=== PATIENT | male | born 1960 | race Caucasian/White ===

== ENCOUNTER → 2016-11-04 | Outpatient (CLI) | payer OTHER ==
--- NOTE | 2016-11-04 15:57 | CT ---
EXAMINATION TYPE: CT cervical spine wo con DATE OF EXAM: 11/04/2016 COMPARISON: NONE HISTORY: Patient complains of neck stiffness and abnormal cspine xrays at doctors office. CT DLP: 928.[address] of the cervical spine was performed with bone and soft tissue window settings submitted . Coronal and sagittal reconstruction is obtained. C2-3: Within normal limits. C3-4: Within normal limits. C4-5: Moderate degenerative disc space narrowing. Posterior disc bulge with mild effacement ventral t hecal sac. No singh disc herniation or central stenosis. Bilateral foraminal encroachment left greate r than right. C5-6: Moderate to severe degenerative disc space narrowing. Moderate posterior disc bulge with partia l encapsulating spur resulting in disc endplate complex. Effacement ventral thecal sac with borderlin e stenosis. Bilateral foraminal encroachment left greater than right. C6-7: Moderate to severe degenerative disc space narrowing. Moderate posterior disc bulge with partia l encapsulating spur resulting in disc endplate complex. Effacement ventral thecal sac with borderlin e stenosis. Bilateral foraminal encroachment left greater than right. C7-T1: Within normal limits. There is no evidence for fracture or subluxation. Alignment is within normal limits. IMPRESSION: 1. Multilevel degenerative disc disease with disc endplate complex and borderline stenosis at C5-6 an d C6-7. Foraminal encroachment as noted.
== END ==
LOC: RADCTMAIN 15:24
PROVIDERS: ATTEND Family Medicine
DX: M48.02 Spinal stenosis, cervical region (principal); M50.30 Other cervical disc degeneration, unspecified cervical region
CPT/HCPCS: 72125

== ENCOUNTER 2018-08-14 19:39 | Inpatient (IN) | payer OTHER ==
[2018-08-14 20:39] LABS: Basophils # (A) 0.1 k/uL (0-0.2); Basophils % (A) 1 %; Eosinophils # (A) 0.1 k/uL (0-0.7); Eosinophils % (A) 2 %; HCT 49.2 % (39.0-53.0); HGB 16.7 gm/dL (13.0-17.5); Lymphocytes # (A) 2.1 k/uL (1.0-4.8); Lymphocytes % (A) 30 %; MCV 97.1 fL (80.0-100.0); Mean Platelet Volume 7.2; Monocytes # (A) 0.5 k/uL (0-1.0); Monocytes % (A) 6 %; Neutrophils # (A) 4.3 k/uL (1.3-7.7); Neutrophils % (A) 60 %; Platelet Count 220 k/uL (150-450); RBC 5.07 m/uL (4.30-5.90); RDW 13.9 % (11.5-15.5); WBC 7.2 k/uL (3.8-10.6)
[2018-08-14 20:46] LABS: ALT 89 U/L (21-72); AST 62 U/L (17-59); Albumin 4.1 g/dL (3.5-5.0); Alkaline Phosphatase 121 U/L (38-126); Amylase 53 U/L (30-110); Anion Gap 17 mmol/L; Blood Urea Nitrogen 13 mg/dL (9-20); Calcium 9.3 mg/dL (8.4-10.2); Carbon Dioxide 18 mmol/L (22-30); Chloride 98 mmol/L (98-107); Creatine Kinase 100 U/L (55-170); Glucose 371 mg/dL (74-99); Lipase 245 U/L (23-300); Magnesium 1.8 mg/dL (1.6-2.3); Potassium 4.2 mmol/L (3.5-5.1); Sodium 133 mmol/L (137-145); Total Bilirubin 0.5 mg/dL (0.2-1.3)
--- NOTE | 2018-08-14 20:49 | XR ---
EXAMINATION TYPE: XR chest 2V DATE OF EXAM: 08/14/2018 COMPARISON: NONE HISTORY: Chest pain TECHNIQUE: Frontal and lateral views of the chest are obtained. FINDINGS: Heart and mediastinum are normal. Lungs are clear. Diaphragm is normal. Bony thorax is int act. There are sternal wires. IMPRESSION: Normal chest.
--- NOTE | 2018-08-14 20:51 | ED ---
Chest Pain HPI - General Chief Complaint: Chest Pain Stated Complaint: Chest Pain Time Seen by Provider: 08/14/18 19:39 Source: patient, EMS, RN notes reviewed Mode of arrival: EMS Limitations: no limitations - History of Present Illness Initial Comments: This is a 57-year-old male with a history of coronary artery bypass x3 about 15 years ago who is brought in by EMS site to shortness of breath which later was accompanied by chest pain. He does have some chronic neck pain it was worse tonight. He was given aspirin nitroglycerin the chest pain to go away. He does state he's been having intermittent fairly consistent now episodes of chest pain every morning lasting about 20 minutes ago with nitroglycerin. He has also been having sweats with it and shortness of breath with it. Right now he has no pain or shortness of breath at this time he does have chronic neck pain that is still there. He denies any trauma fevers chills sweats or other symptoms at this time MD Complaint: chest pain, other - Related Data Home Medications Medication Instructions Recorded Confirmed Atenolol 12.5 mg PO DAILY 09/04/15 08/14/18 Cyclobenzaprine [Flexeril] 10 mg PO DAILY 08/14/18 08/14/18 Omeprazole 40 mg PO DAILY 08/14/18 08/14/18 Vilazodone HCl [Viibryd] 10 mg PO DAILY 08/14/18 08/14/18 Previous Rx's Medication Instructions Recorded Atorvastatin Calcium [Lipitor] 80 mg PO DAILY #1 tab 09/07/15 Allergies Allergy/AdvReac Type Severity Reaction Status Date / Time No Known Allergies Allergy Verified 08/14/18 20:10 Review of Systems ROS Statement: Those systems with pertinent positive or pertinent negative responses have been documented in the HPI. ROS Other: All systems not noted in ROS Statement are negative. EKG Findings - EKG Results: EKG: interpreted by ERMD (EKG shows sinus rhythm a 94. Interval 170 QRS duration 154 QT since QTC 410/412 evidence a left exodeviation left bundle- branch block pattern. This is consistent with that submitted by EMS this is however change from the EKG dated 08/7615.) Past Medical History Past Medical History: CVA/TIA, GERD/Reflux, Hyperlipidemia, Memory Impairment, Myocardial Infarction (NM), Osteoarthritis (OA) Additional Past Medical History / Comment(s): HX OF TIA -SHORT TERM MEMORY PROBLEMS ,HX OF GOUT, RECTAL FISTULA WITH OCCASIONAL BLEEDING. Last Myocardial Infarction Date:: 2010 History of Any Multi-Drug Resistant Organisms: MRSA Date of last positivie culture/infection: 2010 MDRO Source:: chest incision Past Surgical History: Cholecystectomy, Coronary Bypass/CABG, Heart Catheterization Additional Past Surgical History / Comment(s): triple bypass 2011, RECTAL FISTULA SURGERY X6. Past Anesthesia/Blood Transfusion Reactions: No Reported Reaction Past Psychological History: Depression Smoking Status: Current every day smoker Past Alcohol Use History: Occasional Past Drug Use History: None Reported - Past Family History Brother(s) Family Medical History: Deep Vein Thrombosis (DVT) Mother Family Medical History: Cancer Additional Family Medical History / Comment(s): COLON CANCER General Exam - General Exam Comments Initial Comments: This a well-developed well-nourished awake alert oriented 3 male Limitations: no limitations General appearance: alert, in no apparent distress Head exam: Present: atraumatic, normocephalic, normal inspection Eye exam: Present: normal appearance, PERRL, EOMI. Absent: scleral icterus, conjunctival injection, periorbital swelling ENT exam: Present: normal exam, mucous membranes moist Neck exam: Present: normal inspection. Absent: tenderness, meningismus, lymphadenopathy Respiratory exam: Present: normal lung sounds bilaterally. Absent: respiratory distress, wheezes, rales, rhonchi, stridor Cardiovascular Exam: Present: regular rate, normal rhythm, normal heart sounds. Absent: systolic murmur, diastolic murmur, rubs, gallop, clicks GI/Abdominal exam: Present: soft, normal bowel sounds. Absent: distended, tenderness, guarding, rebound, rigid Extremities exam: Present: normal inspection, full ROM, normal capillary refill. Absent: tenderness, pedal edema, joint swelling, calf tenderness Back exam: Present: normal inspection Neurological exam: Present: alert, oriented X3, CN II-XII intact Psychiatric exam: Present: normal affect, normal mood Skin exam: Present: warm, dry, intact, normal color. Absent: rash Course Vital Signs 08/14/18 08/14/18 08/14/18 19:42 21:22 22:55 Temperature 98.1 F Pulse Rate 97 79 Respiratory 20 16 Rate Blood Pressure 109/93 109/73 93/68 O2 Sat by Pulse 95 96 Oximetry - Reevaluation(s) Reevaluation #1: 08/14/18 23:06 Patient no further chest pain while in the emergency department. Chest Pain MDM - MDM Patient's presentation consistent with angina is been having recurrent pain and other symptoms associated with it. Discussed case with Dr. gipson patient be admitted with cardiology consultation. Critical Care Time Critical Care Time: Yes Critical Care Time: 31 minutes of critical care time which was initial presentation with history physical labs x-rays several reassessments of the patient discussed with the paramedics brought the patient. Discussed with Dr. gipson and admission orders and documentation the above as well as review of old charting. Disposition Clinical Impression: Chest pain, Unstable angina pectoris, Acute coronary syndrome Disposition: ADMITTED IP TO THIS HOSP Condition: Fair Referrals: Juan Rice MD [Primary Care Provider] - 1-2 days
[2018-08-14 21:04] LABS: INR 0.9 (<1.2); Partial Thromboplastin Time 22.2 sec (22.0-30.0); Prothrombin Time 9.9 sec (9.0-12.0)
[2018-08-14 21:28] LABS: D-Dimer 0.68 mg/L FEU (<0.60)
[2018-08-14] MEDS ORDERED: HEPARIN SODIUM,PORCINE 5,000 UNIT/ML 1 ML VIAL IV ONE (23:10)
[2018-08-14] MEDS ORDERED: NITROGLYCERIN SL TABS 0.4 MG TAB SUBLINGUAL PRN (23:10)
--- NOTE | 2018-08-14 23:14 | ED ---
Medical Decision Making - Lab Data Result diagrams: 08/14/18 20:19 08/14/18 20:19 Lab Results 08/14/18 08/14/18 08/14/18 Range/Units 20:19 20:19 20:19 WBC 7.2 (3.8-10.6) k/uL RBC 5.07 (4.30-5.90) m/uL Hgb 16.7 (13.0-17.5) gm/dL Hct 49.2 (39.0-53.0) % MCV 97.1 (80.0-100.0) fL MCH 33.0 (25.0-35.0) pg MCHC 34.0 (31.0-37.0) g/dL RDW 13.9 (11.5-15.5) % Plt Count 220 (150-450) k/uL Neutrophils % 60 % Lymphocytes % 30 % Monocytes % 6 % Eosinophils % 2 % Basophils % 1 % Neutrophils # 4.3 (1.3-7.7) k/uL Lymphocytes # 2.1 (1.0-4.8) k/uL Monocytes # 0.5 (0-1.0) k/uL Eosinophils # 0.1 (0-0.7) k/uL Basophils # 0.1 (0-0.2) k/uL PT 9.9 (9.0-12.0) sec INR 0.9 (<1.2) APTT 22.2 (22.0-30.0) sec D-Dimer 0.68 H (<0.60) mg/L FEU Sodium 133 L (137-145) mmol/L Potassium 4.2 (3.5-5.1) mmol/L Chloride 98 (98-107) mmol/L Carbon Dioxide 18 L (22-30) mmol/L Anion Gap 17 mmol/L BUN 13 (9-20) mg/dL Creatinine 0.97 (0.66-1.25) mg/dL Est GFR (CKD-EPI)AfAm >90 (>60 ml/min/1.73 sqM) Est GFR (CKD-EPI)NonAf 87 (>60 ml/min/1.73 sqM) Glucose 371 H (74-99) mg/dL Calcium 9.3 (8.4-10.2) mg/dL Magnesium 1.8 (1.6-2.3) mg/dL Total Bilirubin 0.5 (0.2-1.3) mg/dL AST 62 H (17-59) U/L ALT 89 H (21-72) U/L Alkaline Phosphatase 121 (38-126) U/L Creatine Kinase 100 (55-170) U/L Troponin I (0.000-0.034) ng/mL NT-Pro-B Natriuret Pep pg/mL Total Protein 7.0 (6.3-8.2) g/dL Albumin 4.1 (3.5-5.0) g/dL Amylase 53 (30-110) U/L Lipase 245 (23-300) U/L 08/14/18 08/14/18 Range/Units 20:19 20:19 WBC (3.8-10.6) k/uL RBC (4.30-5.90) m/uL Hgb (13.0-17.5) gm/dL Hct (39.0-53.0) % MCV (80.0-100.0) fL MCH (25.0-35.0) pg MCHC (31.0-37.0) g/dL RDW (11.5-15.5) % Plt Count (150-450) k/uL Neutrophils % % Lymphocytes % % Monocytes % % Eosinophils % % Basophils % % Neutrophils # (1.3-7.7) k/uL Lymphocytes # (1.0-4.8) k/uL Monocytes # (0-1.0) k/uL Eosinophils # (0-0.7) k/uL Basophils # (0-0.2) k/uL PT (9.0-12.0) sec INR (<1.2) APTT (22.0-30.0) sec D-Dimer (<0.60) mg/L FEU Sodium (137-145) mmol/L Potassium (3.5-5.1) mmol/L Chloride (98-107) mmol/L Carbon Dioxide (22-30) mmol/L Anion Gap mmol/L BUN (9-20) mg/dL Creatinine (0.66-1.25) mg/dL Est GFR (CKD-EPI)AfAm (>60 ml/min/1.73 sqM) Est GFR (CKD-EPI)NonAf (>60 ml/min/1.73 sqM) Glucose (74-99) mg/dL Calcium (8.4-10.2) mg/dL Magnesium (1.6-2.3) mg/dL Total Bilirubin (0.2-1.3) mg/dL AST (17-59) U/L ALT (21-72) U/L Alkaline Phosphatase (38-126) U/L Creatine Kinase (55-170) U/L Troponin I 0.029 (0.000-0.034) ng/mL NT-Pro-B Natriuret Pep 353 pg/mL Total Protein (6.3-8.2) g/dL Albumin (3.5-5.0) g/dL Amylase (30-110) U/L Lipase (23-300) U/L Disposition Clinical Impression: Chest pain, Unstable angina pectoris, Acute coronary syndrome, Hyperglycemia Disposition: ADMITTED IP TO THIS HOSP Condition: Fair Referrals: Juan Rice MD [Primary Care Provider] - 1-2 days
[2018-08-14] MEDS: SODIUM CHLORIDE 0.9% 1,000 ML IV SCH (23:33)
[2018-08-14] MEDS: HEPARIN SOD,PORK IN 0.45% NACL 25,000 UNIT in 0.45% NACL 1 250ML.BAG IV SCH (23:36)
[2018-08-15 00:49] LABS: Glucose,Whole Blood 206 mg/dL (75-99)
[2018-08-15] MEDS ORDERED: INSULIN ASPART (NovoLOG) 100 UNIT/ML VIAL SQ ONE (00:53)
[2018-08-15] MEDS: NITROGLYCERIN OINT 1 INCH/GM PACKET TOPICAL SCH ×4 (01:05→17:07)
[2018-08-15 06:41] LABS: Glucose,Whole Blood 181 mg/dL (75-99)
[2018-08-15 06:53] LABS: Cholesterol 244 mg/dL (<200); HDL Cholesterol 26 mg/dL (40-60); Triglycerides 411 mg/dL (<150)
[2018-08-15] MEDS ORDERED: ALPRAZolam 0.5 MG TAB PO PRN (07:36)
[2018-08-15] MEDS ORDERED: NITROGLYCERIN SL TABS 0.4 MG TAB SUBLINGUAL PRN (07:36)
[2018-08-15] MEDS ORDERED: ALPRAZolam 0.25 MG TAB PO PRN (07:36)
--- NOTE | 2018-08-15 07:55 | CONS ---
CONSULTATION Mr. Stephens is a 57-year-old male with a known history of heart disease about 15 years ago who presented to the hospital with symptoms of chest discomfort. He follows on a regular basis with Dr. Villalobos, has a history of chronic tobacco use, noncompliance with his medication. He has been complaining of chest discomfort according to him every morning that is relieved with nitroglycerin, but yesterday the discomfort was most severe. He has dyspnea on exertion of moderate degree. He has no dizziness. No palpitation. No syncope. No PND, orthopnea, or peripheral edema. His coronary risk factors are remarkable for hyperlipidemia, chronic tobacco use and smoking. MEDICATIONS: His medication he is supposed to be on: Viibryd, omeprazole, Flexeril, Lipitor 80 mg daily, atenolol 12.5 mg daily, although the compliance with his medication is on clear. REVIEW OF SYSTEMS: RESPIRATORY system: He has chronic dyspnea on exertion and chronic tobacco use. GI system: He has prior history of fistula with occasional GI bleeding. system: No dysuria or hematuria. NERVOUS SYSTEM: No stroke or seizure. SOCIAL HISTORY: He smokes on a daily basis. He has occasional alcohol intake. PHYSICAL EXAMINATION: He is a 57-year-old male, alert, oriented, no apparent distress. Blood pressure 110/70 with a heart rate in the 70s. HEAD: Normocephalic. EYES: Sclerae anicteric. NECK: Good upstroke. No bruit. No jugular venous distention. LUNGS: Clear to auscultation. HEART: Regular rate and rhythm. S1, S2. No S3 with a systolic murmur heard at the base. No diastolic murmur. No rub. ABDOMEN: Soft, obese, nontender. EXTREMITIES: No edema. Intact distal pulses. The patient has underwent echocardiogram during his most recent admission in 2016. At that time had ejection fraction of 35-40 percent. He underwent cardiac catheterization at that time by Dr. Villalobos and was found to have a 50% ostial left main chronically occluded LAD, subtotally occluded obtuse marginal branch and diffuse disease in the mid right coronary artery. The saphenous vein graft to the left circumflex was occluded and he was treated medically. LAB DATA: From this admission revealed a troponin 0.029 and 0.042, cholesterol 244, triglycerides of 411. His AST 62, ALT is 89, blood sugar of 371, BUN and creatinine 13 and 0.97, hemoglobin of 16.7. His chest x-ray revealed no acute infiltrate. His EKG revealed sinus mechanism with a left bundle branch block and left axis deviation. IMPRESSION: 1. Non ST-segment elevation myocardial infarction in a patient with known history of coronary artery disease. 2. History of ischemic cardiomyopathy. 3. Noncompliance. 4. Probable diabetes mellitus with elevated blood sugar. 5. Chronic tobacco use. 6. Hypertension. RECOMMENDATION: From the cardiac standpoint, I will obtain echocardiogram with Doppler. We will continue on the heparin. I would recommend to proceed with coronary angiography to assess his status and guide his treatment. The rationale behind the procedures, risks and complication were discussed with the patient who is in full understanding and agreement. Thank you for this consult. We will follow with you. MMODL / IJN: [id number] /
[2018-08-15] MEDS ORDERED: ATORVASTATIN 80 MG TAB PO SCH (09:00)
[2018-08-15] MEDS ORDERED: ASPIRIN 325 MG TAB PO SCH ×2 (09:00→09:05)
[2018-08-15] MEDS: LISINOPRIL 5 MG TAB PO SCH (09:23)
[2018-08-15] MEDS: CYCLOBENZAPRINE 10 MG TAB PO SCH (09:23)
[2018-08-15] MEDS: INSULIN ASPART (NovoLOG) 100 UNIT/ML VIAL SQ SCH ×4 (09:23→21:04)
[2018-08-15] MEDS: ATENOLOL 25 MG TAB PO SCH (09:23)
[2018-08-15] MEDS: PANTOPRAZOLE 40 MG TABLET PO SCH (09:23)
[2018-08-15] MEDS: ATORVASTATIN 80 MG TAB PO SCH (09:29)
[2018-08-15] MEDS: Vilazodone Hcl [Viibryd] 10 MG PO SCH (09:34)
--- NOTE | 2018-08-15 10:33 | P.HPIM ---
History of Present Illness Chief Complaint: Chest pain This is a 57-year-old gentleman aspirin analysis significant for hypertension, hyperlipidemia, CAD comes in with above-mentioned complaints. Patient says that for the past few days she's been having chest pain daily in the morning which would be relieved by nitro. He said that yesterday he started having chest pains in the morning that didn't get better with nitro. He didn't want to keep taking nitros which came to the ER for further admission and management. He says that he would be short of breath and nauseous any of the chest pain and also would feel lightheaded. He did not throw up. He otherwise does not complain of any racing heart, he said that he is starting to have pain in his right upper quadrant. He says that he had cholecystectomy done and the pain is associated with him eating. He does not complain of any tingling numbness on in the extremities, no itch no rash. ER course-patient's vitals were stable. Labwork was done which showed WBC 7.2 hemoglobin 16.7 platelets 220 d-dimer 0.68 sodium 133 potassium 4.2 bun 13 creatinine 97 troponins were 0.042 and 0.039 respectively. Patient was thus admitted to the hospitalist service a further urology management with cardiology consult Review of Systems All systems: negative Past Medical History Past Medical History: CVA/TIA, GERD/Reflux, Hyperlipidemia, Memory Impairment, Myocardial Infarction (NH), Osteoarthritis (OA) Additional Past Medical History / Comment(s): HX OF TIA -SHORT TERM MEMORY PROBL EMS ,HX OF GOUT, RECTAL FISTULA WITH OCCASIONAL BLEEDING. Last Myocardial Infarction Date:: 2010 History of Any Multi-Drug Resistant Organisms: MRSA Date of last positivie culture/infection: 2010 MDRO Source:: chest incision Past Surgical History: Cholecystectomy, Coronary Bypass/CABG, Heart Catheterization Additional Past Surgical History / Comment(s): triple bypass 2011, RECTAL FISTULA SURGERY X6. Past Anesthesia/Blood Transfusion Reactions: No Reported Reaction Past Psychological History: Depression Smoking Status: Current every day smoker Past Alcohol Use History: Occasional Additional Past Alcohol Use History / Comment(s): 1ppd for 40 yrs. Past Drug Use History: None Reported - Past Family History Brother(s) Family Medical History: Diabetes Mellitus, Deep Vein Thrombosis (DVT) Additional Family Medical History / Comment(s): epilepsy, Mother Family Medical History: Cancer Additional Family Medical History / Comment(s): COLON CANCER Medications and Allergies Home Medications Medication Instructions Recorded Confirmed Type Atenolol 12.5 mg PO DAILY 09/04/15 08/14/18 History Atorvastatin Calcium [Lipitor] 80 mg PO DAILY #1 tab 09/07/15 08/14/18 Rx Cyclobenzaprine [Flexeril] 10 mg PO DAILY 08/14/18 08/14/18 History Omeprazole 40 mg PO DAILY 08/14/18 08/14/18 History Vilazodone HCl [Viibryd] 10 mg PO DAILY 08/14/18 08/14/18 History Allergies Allergy/AdvReac Type Severity Reaction Status Date / Time No Known Allergies Allergy Verified 08/14/18 20:10 Physical Exam Vitals: Vital Signs Temp Pulse Pulse Resp BP BP Pulse Ox 08/15/18 08:00 97.8 F 84 18 135/79 96 08/15/18 04:00 97.2 F L 79 16 110/77 96 08/15/18 00:00 97.5 F L 84 16 122/82 98 08/14/18 23:42 97.8 F 84 20 111/79 97 08/14/18 22:55 79 16 93/68 96 08/14/18 21:22 109/73 08/14/18 19:42 98.1 F 97 20 109/93 95 Intake and Output 08/14/18 08/15/18 08/15/18 22:59 06:59 14:59 Intake Total 106.276 Balance 106.276 Intake: Intake, IV Titration 106.276 Amount Heparin Sod,Pork in 0.45% 106.276 NaCl 25,000 unit In 0.45 % NaCl 1 250ml.bag @ 8 UNITS/KG/HR 9.979 mls/hr IV .Q24H ON LICENSE OF [facility] Rx#: [id number] Other: Voiding Method Toilet Toilet # Voids 1 Weight 124.738 kg On exam, alert and oriented x3. HEENT: Conjunctivae normal. eyes normal. NECK: No JVD. No thyroid enlargement. No LNs CARDIOVASCULAR: S1, S2 positive RESPIRATION: Breath sounds diminished in the bases. No rhonchi or crackles. No bronchial breathing. ABDOMEN: Soft, nontender . No guarding. no masses palpable. No ascites, No hepatosplenomegaly.Bowel sounds heard. LEGS: No edema. no swelling NERVOUS SYSTEM: Cranial N 2-12 grossly normal. Moves all 4 limbs. No focal deficits. No sensory deficit. No signs of cerebellar dysfucntion. Skin: no ulcer no rash Joints: No active swelling. No inflammation. Lymphatic system. No LN neck axilla or groin. Results CBC & Chem 7: 08/14/18 20:19 08/14/18 20:19 Labs: Abnormal Lab Results - Last 24 Hours (Table) 08/14/18 08/14/18 08/15/18 Range/Units 20:19 20:19 00:44 APTT (22.0-30.0) sec D-Dimer 0.68 H (<0.60) mg/L FEU Sodium 133 L (137-145) mmol/L Carbon Dioxide 18 L (22-30) mmol/L Glucose 371 H (74-99) mg/dL POC Glucose (mg/dL) 206 H (75-99) mg/dL AST 62 H (17-59) U/L ALT 89 H (21-72) U/L Troponin I (0.000-0.034) ng/mL Triglycerides (<150) mg/dL Cholesterol (<200) mg/dL HDL Cholesterol (40-60) mg/dL 08/15/18 08/15/18 08/15/18 Range/Units 01:08 05:51 05:51 APTT 31.5 H (22.0-30.0) sec D-Dimer (<0.60) mg/L FEU Sodium (137-145) mmol/L Carbon Dioxide (22-30) mmol/L Glucose (74-99) mg/dL POC Glucose (mg/dL) (75-99) mg/dL AST (17-59) U/L ALT (21-72) U/L Troponin I 0.042 H* (0.000-0.034) ng/mL Triglycerides 411 H (<150) mg/dL Cholesterol 244 H (<200) mg/dL HDL Cholesterol 26 L (40-60) mg/dL 08/15/18 08/15/18 Range/Units 06:39 07:35 APTT (22.0-30.0) sec D-Dimer (<0.60) mg/L FEU Sodium (137-145) mmol/L Carbon Dioxide (22-30) mmol/L Glucose (74-99) mg/dL POC Glucose (mg/dL) 181 H (75-99) mg/dL AST (17-59) U/L ALT (21-72) U/L Troponin I 0.039 H* (0.000-0.034) ng/mL Triglycerides (<150) mg/dL Cholesterol (<200) mg/dL HDL Cholesterol (40-60) mg/dL Thrombosis Risk Factor Assmnt - Choose All That Apply Any of the Below Risk Factors Present?: Yes Each Factor Represents 1 point: Age 41-60 years, Obesity (BMI >25) Other Risk Factors: No Thrombosis Risk Factor Assessment Total Risk Factor Score: 2 Thrombosis Risk Factor Assessment Level: Low Risk Assessment and Plan Assessment: - Non-STEMI - Right upper quadrant abdominal pain - Hypertension - Hyperlipidemia - History of CAD - History of GERD - History of CVA/TIA Plan Patient will be admitted to observation with telemetry - Patient was seen by cardiology. He will board for cath tomorrow morning - Patient said that he starting to have abdominal pain in his right upper quadrant and is related to his eating. We'll order for LFTs and order for ultrasound of his right upper quadrant. He said that he had gallbladder removed. We are doing the ultrasound of the right upper quadrant rule out any obstructive bili pathology internally. - He'll be nothing by mouth after midnight - We'll continue the patient's home medications - DVT and GI prophylaxis - We will order for lab work in the morning - Patient is full code- Time with Patient: Greater than 30
[2018-08-15] MEDS: HEPARIN SODIUM,PORCINE 5,000 UNIT/ML 1 ML VIAL IV PRN ×2 (10:40→17:27)
[2018-08-15 11:02] LABS: ALT 100 U/L (21-72); AST 92 U/L (17-59); Albumin 3.9 g/dL (3.5-5.0); Alkaline Phosphatase 120 U/L (38-126); Anion Gap 12 mmol/L; Blood Urea Nitrogen 13 mg/dL (9-20); Calcium 9.1 mg/dL (8.4-10.2); Carbon Dioxide 21 mmol/L (22-30); Chloride 103 mmol/L (98-107); Glucose 158 mg/dL (74-99); Potassium 4.1 mmol/L (3.5-5.1); Sodium 136 mmol/L (137-145); Total Protein 6.8 g/dL (6.3-8.2)
--- NOTE | 2018-08-15 11:17 | US ---
EXAMINATION TYPE: US abdomen limited DATE OF EXAM: 08/15/2018 COMPARISON: CT 08/17/2015, US 06/07/2015 CLINICAL HISTORY: Right upper quadrant pain. Very difficult and limited exam due to patient body habi tus EXAM MEASUREMENTS: Liver Length: 24.7 cm Gallbladder Wall: Surgically absent cm CBD: 0.5 cm Right Kidney: 10.9 x 5.8 x 5.1 cm Pancreas: Obscured by bowel gas Liver: Extremely limited visualization. Attenuating, enlarged Gallbladder: Surgically absent Evidence for sonographic Mack's sign: No CBD: wnl as visualized, limited visualization Right Kidney: No hydronephrosis. Nodular contour visualized The pancreas is not visualized. The liver is enlarged measuring 24.7 cm. It is attenuating and likely fatty infiltrated The gallbladder is been removed. This common hepatic duct measures 5 mm. Right kidney is unremarkable. IMPRESSION: 1. HEPATOMEGALY AND FATTY INFILTRATION OF THE LIVER. 2. STATUS POST CHOLECYSTECTOMY.
[2018-08-15 11:48] LABS: Glucose,Whole Blood 191 mg/dL (75-99)
[2018-08-15 16:03] LABS: Mean Platelet Volume 6.8; Platelet Count 208 k/uL (150-450)
[2018-08-15 16:51] LABS: Glucose,Whole Blood 158 mg/dL (75-99)
[2018-08-15 20:32] LABS: Glucose,Whole Blood 176 mg/dL (75-99)
[2018-08-15] MEDS: HEPARIN SOD,PORK IN 0.45% NACL 25,000 UNIT in 0.45% NACL 1 250ML.BAG IV SCH (21:05)
[2018-08-15 23:49] LABS: Mean Platelet Volume 7.1; Platelet Count 191 k/uL (150-450)
[2018-08-16] MEDS: SODIUM CHLORIDE 0.9% 1,000 ML IV SCH (00:26)
[2018-08-16] MEDS: NITROGLYCERIN OINT 1 INCH/GM PACKET TOPICAL SCH ×2 (00:26→06:15)
[2018-08-16 05:27] LABS: Glucose,Whole Blood 207 mg/dL (75-99)
[2018-08-16] MEDS: INSULIN ASPART (NovoLOG) 100 UNIT/ML VIAL SQ SCH ×4 (06:13→21:01)
[2018-08-16] MEDS: ATENOLOL 25 MG TAB PO SCH (06:13)
[2018-08-16] MEDS: PANTOPRAZOLE 40 MG TABLET PO SCH (06:14)
[2018-08-16] MEDS: CYCLOBENZAPRINE 10 MG TAB PO SCH (06:14)
[2018-08-16] MEDS: LISINOPRIL 5 MG TAB PO SCH (06:14)
[2018-08-16] MEDS: Vilazodone Hcl [Viibryd] 10 MG PO SCH (06:16)
[2018-08-16 06:45] LABS: Anion Gap 10 mmol/L; Blood Urea Nitrogen 16 mg/dL (9-20); Calcium 8.9 mg/dL (8.4-10.2); Carbon Dioxide 20 mmol/L (22-30); Chloride 105 mmol/L (98-107); Glucose 202 mg/dL (74-99); Potassium 4.4 mmol/L (3.5-5.1); Sodium 135 mmol/L (137-145)
[2018-08-16] MEDS ORDERED: ATORVASTATIN 80 MG TAB PO ONE (07:00)
[2018-08-16] MEDS ORDERED: ASPIRIN 325 MG TAB PO ONE (07:00)
[2018-08-16] MEDS ORDERED: SODIUM CHLORIDE 0.9% 1,000 ML in EMPTY BAG 1 BAG IV ONE (07:00)
[2018-08-16] MEDS ORDERED: IV FLUID CONTINUATION 1,000 ML IV ONE (07:32)
[2018-08-16] MEDS ORDERED: fentaNYL (PF) 50 MCG/ML 2 ML AMP IV ONE (07:46)
[2018-08-16] MEDS ORDERED: LIDOCAINE 1% INJ 10MG/ML (20 ML MDV) SQ ONE (07:46)
[2018-08-16] MEDS ORDERED: MIDAZOLAM (PF) 2 MG/2 ML VIAL IV ONE (07:46)
[2018-08-16] MEDS ORDERED: CLOPIDOGREL 75 MG TAB PO ONE (08:24)
[2018-08-16] MEDS ORDERED: BIVALIRUDIN BOLUS 250 MG/50 ML IV ONE (08:32)
[2018-08-16] MEDS ORDERED: BIVALIRUDIN 250 MG in SODIUM CHLORIDE 0.9% 50 ML IV ONE ×2 (08:33→08:52)
[2018-08-16] MEDS: NITROGLYCERIN 1000MCG/10ML SYRINGE INTRACORON ONE ×2 (08:47→09:10)
[2018-08-16] MEDS ORDERED: IOPAMIDOL-370 100ML BTL INJ ONE ×2 (08:51→09:01)
[2018-08-16] MEDS ORDERED: ZOLPIDEM 5 MG TAB PO PRN (09:25)
[2018-08-16] MEDS ORDERED: NITROGLYCERIN SL TABS 0.4 MG TAB SUBLINGUAL PRN (09:25)
[2018-08-16] MEDS ORDERED: MAG HYDROX/AL HYDROX/SIMETH 30 ML CUP PO PRN (09:25)
[2018-08-16] MEDS ORDERED: ATROPINE SULFATE 0.1 MG/ML 10ML SYRINGE IV PRN (09:25)
[2018-08-16] MEDS ORDERED: RX INFO: IV CONTRAST WAS GIVEN 1 EACH MISC MISCELLANE PRN (09:25)
[2018-08-16] MEDS ORDERED: SODIUM CHLORIDE 0.9% 1,000 ML IV SCH (09:30)
--- NOTE | 2018-08-16 10:50 | PTCA ---
PERCUTANEOUSTRANS CORORONARY ANGIOGRAPHY Mr. Stephens is a 57-year-old male with a known history of coronary artery disease, history of chronic tobacco use, hyperlipidemia, status post coronary artery bypass grafting who presented with non ST-segment elevation myocardial infarction, underwent cardiac catheterization by Dr. Villalobos and was found to have critical stenosis involving the long segment of the mid RCA in the distal RCA. In view of that, recommendation was made regarding angioplasty and stenting. The procedures, risks, and complications were discussed with the patient who is in full understanding and agreement. DESCRIPTION OF PROCEDURE: A 6-Turkish FR4 guiding catheter introduced into the system after cannulating the right coronary ostium. A 0.014 balanced medium weight J-wire was advanced across the lesion, positioned distally. Subsequently a 2.5 x 12 mm Trek balloon was advanced and multiple inflation in distal and mid mid segment were performed. Following that, another 0.014 balanced medium weight J-wire was advanced next to the first one in a pal fashion and positioned distally. Following that, a 2.5 x 18 mm Xience Nancy stent was deployed, postdilated at 16 atmosphere and after removing the balloon, and then 2.5 x 12 mm Xience Nancy stent was deployed distal to the first one and postdilated to 16 atmospheres and then inflation overlap segment at 16 atmospheres was done. Following that the balloon was removed and a 2.5 x 23 mm Xience Nancy stent artery ER stent was deployed in mid segment post dilated at 16 atmospheres and after removing the balloon a 2.75 x 12 mm Xience Nancy stent was deployed proximal to the last 1 and post dilated at 16 atmospheres. Following that, an inflation overlap segment 16 atmospheres was done. After the last inflation, after appropriate wait the balloon and the guidewire were withdrawn back in the guiding catheter. Images were obtained and repeated. Those images reveal stable successful stenting. At that point, the guiding catheter, the balloon and the guidewire were removed, the sheath was sutured in place, the patient is returned to his room in stable condition. Of note, the patient received Angiomax per protocol as well as oral loading dose of clopidogrel. He had no chest discomfort or significant EKG changes with the inflation. RESULTS: Successful stenting of the distal right coronary artery with reduction of stenosis from 85% to 0%, and successful stenting of the mid RCA with reduction of stenosis from 99% to 0%. RECOMMENDATION: Patient be continued on aspirin, Plavix, beta blockers and statin. The importance of dual antiplatelet treatment were discussed with the patient who is in full understanding and agreement. The patient depending on his progress, may require staged angioplasty to the proximal left circumflex. duration of procedure is 43 minutes. ARIA / LUISN: [id number] / AIMEE
[2018-08-16 11:45] LABS: Glucose,Whole Blood 153 mg/dL (75-99)
[2018-08-16 13:44] LABS: Albumin 3.4 g/dL (3.5-5.0); Bilirubin, Delta 0.2 mg/dL (0.0-0.2); Bilirubin,Unconjugated 0.4 mg/dL (0.0-1.1); Total Bilirubin 0.6 mg/dL (0.2-1.3); Total Protein 6.1 g/dL (6.3-8.2)
--- NOTE | 2018-08-16 13:44 | P.PN ---
Subjective This is a 57-year-old gentleman aspirin analysis significant for hypertension, hyperlipidemia, CAD comes in with above-mentioned complaints. Patient says that for the past few days she's been having chest pain daily in the morning which would be relieved by nitro. He said that yesterday he started having chest pains in the morning that didn't get better with nitro. He didn't want to keep taking nitros which came to the ER for further admission and management. He says that he would be short of breath and nauseous any of the chest pain and also would feel lightheaded. He did not throw up. He otherwise does not complain of any racing heart, he said that he is starting to have pain in his right upper quadrant. He says that he had cholecystectomy done and the pain is associated with him eating. He does not complain of any tingling numbness on in the extremities, no itch no rash. ER course-patient's vitals were stable. Lab work was done which showed WBC 7.2 hemoglobin 16.7 platelets 220 d-dimer 0.68 sodium 133 potassium 4.2 bun 13 creatinine 97 troponins were 0.042 and 0.039 respectively. Patient was thus admitted to the hospitalist service a further urology management with cardiology consult 08/16/2018 Patient presents with coronary artery disease as non-STEMI, he underwent cardiac catheterization and stenting of the mid and distal right coronary artery. Currently patient denies chest pain or dyspnea. Patient comes with right upper quadrant abdominal pain, liver ultrasound showing fatty infiltration of the liver, status post cholecystectomy. Repeat liver enzymes available were going to recheck LFTs again. Patient says that he still have pain in the right upper quadrant about 4/10 in severity. We are going to call gastroenterology consult. Patient hemodynamically stable and labs reviewed Objective - Vital Signs Vital signs: Vital Signs Temp 97.6 F 08/16/18 07:39 Pulse 64 08/16/18 12:45 Resp 16 08/16/18 12:45 BP 110/70 08/16/18 12:45 Pulse Ox 96 08/16/18 12:45 Intake & Output 08/15/18 08/16/18 08/16/18 18:59 06:59 18:59 Intake Total 204.316 45.684 290 Output Total 100 Balance 204.316 -54.316 290 Weight 130.7 kg Intake: IV 50 Intake, IV Titration 204.316 45.684 Amount Heparin Sod,Pork in 0.45% 204.316 45.684 NaCl 25,000 unit In 0.45 % NaCl 1 250ml.bag @ 8 UNITS/KG/HR 9.979 mls/hr IV .Q24H [facility] Rx#: [id number] Oral 240 Output: Urine 100 Other: Voiding Method Toilet Toilet # Voids 1 1 # Bowel Movements 1 - Exam -GENERAL: The patient is alert and oriented x3, not in any acute distress. Obese HEENT: Pupils are round and equally reacting to light. EOMI. No scleral icterus. No conjunctival pallor. Normocephalic, atraumatic. No pharyngeal erythema. No thyromegaly. CARDIOVASCULAR: S1 and S2 present. No murmurs, rubs, or gallops. PULMONARY: Chest is clear to auscultation, no wheezing or crackles. -ABDOMEN: Soft, right upper quadrant tenderness with no rebound tenderness or guarding, nondistended, normoactive bowel sounds. No palpable organomegaly. MUSCULOSKELETAL: No joint swelling or deformity. EXTREMITIES: No cyanosis, clubbing, or pedal edema. NEUROLOGICAL: Gross neurological examination did not reveal any focal deficits. SKIN: No rashes. - Labs CBC & Chem 7: 08/15/18 23:31 08/16/18 05:29 Labs: Abnormal Lab Results - Last 24 Hours (Table) 08/15/18 08/15/18 08/15/18 Range/Units 15:52 16:50 20:30 APTT 44.4 H (22.0-30.0) sec Sodium (137-145) mmol/L Carbon Dioxide (22-30) mmol/L Glucose (74-99) mg/dL POC Glucose (mg/dL) 158 H 176 H (75-99) mg/dL 08/15/18 08/16/18 08/16/18 Range/Units 23:31 05:25 05:29 APTT 50.9 H (22.0-30.0) sec Sodium 135 L (137-145) mmol/L Carbon Dioxide 20 L (22-30) mmol/L Glucose 202 H (74-99) mg/dL POC Glucose (mg/dL) 207 H (75-99) mg/dL 08/16/18 08/16/18 Range/Units 05:29 11:39 APTT 46.8 H (22.0-30.0) sec Sodium (137-145) mmol/L Carbon Dioxide (22-30) mmol/L Glucose (74-99) mg/dL POC Glucose (mg/dL) 153 H (75-99) mg/dL Assessment and Plan Assessment: - Non-STEMI, status post stenting of the mid and distal RCA - Right upper quadrant abdominal pain, with ultrasound showing cholecystectomy and fatty infiltration of the liver. - Elevated liver enzymes - Hypertension - Hyperlipidemia - History of CAD - History of GERD - History of CVA/TIA Plan: This is a pleasant 57 years old male who presents with non-STEMI, status post stenting. Cardiology evaluated the patient and therefore on case closely. Continue on aspirin and Plavix, call GI consult for his right upper quadrant abdominal pain as ultrasound showed fatty liver with cholecystectomy. Has elevated liver enzymes. We will check the level of liver enzymes again.Labs and medication were reviewed.. Continue same treatment. Continue with symptomatic treatment. Resume home medication. Monitor lytes and vitals. DVT and GI prophylaxis. Further recommendations of the clinical course of the patient DVT prophylaxis: Subcutaneous heparin GI Prophylaxis: Ppi PT/OT: Pending Prognosis is guarded
[2018-08-16 14:53] LABS: Hemoglobin A1C 8.8 % (4.0-6.0)
[2018-08-16 16:44] LABS: Glucose,Whole Blood 208 mg/dL (75-99)
--- NOTE | 2018-08-16 18:42 | ECHOF ---
Referral Reason:cp MEASUREMENTS -------- HEIGHT: 172.7 cm WEIGHT: 124.7 kg BP: MV E Curtis: 0.72 m/s MV DecT: 241 ms MV A Curtis: 0.68 m/s MV E/A Ratio: 1.06 FINDINGS -------- Sinus rhythm. This was a technically difficult study with suboptimal views. The left ventricular size is normal. There is mild concentric left ventricular hypertrophy. Overa ll left ventricular systolic function is moderately impaired with, an EF between 35 - 40 %. Basal i nferoseptal LV wall motion is hypokinetic. Mid lateral LV wall motion is hypokinetic. Apical la teral LV wall motion is hypokinetic. inferolateral appears hypokinetic. The RV was not well visualized. The left atrium was not well visualized. The right atrium was not well visualized. Lumason used The aortic valve was not well visualized. The mitral valve was not well visualized. The tricuspid valve was not well visualized. The pulmonic valve was not well visualized. CONCLUSIONS -------- 1. Sinus rhythm. 2. This was a technically difficult study with suboptimal views. 3. The left ventricular size is normal. 4. There is mild concentric left ventricular hypertrophy. 5. Overall left ventricular systolic function is moderately impaired with, an EF between 35 - 40 %. 6. Basal inferoseptal LV wall motion is hypokinetic. 7. Mid lateral LV wall motion is hypokinetic. 8. inferolateral appears hypokinetic. 9. The RV was not well visualized. 10. The left atrium was not well visualized. 11. The right atrium was not well visualized. 12. Lumason used 13. The aortic valve was not well visualized. 14. The mitral valve was not well visualized. 15. The tricuspid valve was not well visualized. 16. The pulmonic valve was not well visualized. SHIP FASTENER: Elek Booker RDCS
[2018-08-16 20:41] LABS: Glucose,Whole Blood 201 mg/dL (75-99)
[2018-08-16] MEDS: HEPARIN SODIUM,PORCINE 5,000 UNIT/ML 1 ML VIAL SQ SCH (21:01)
[2018-08-17] MEDS: SODIUM CHLORIDE 0.9% 1,000 ML IV SCH (01:04)
[2018-08-17] MEDS: INSULIN ASPART (NovoLOG) 100 UNIT/ML VIAL SQ SCH ×2 (06:14→13:37)
[2018-08-17] MEDS: PANTOPRAZOLE 40 MG TABLET PO SCH (06:14)
[2018-08-17 06:18] LABS: Glucose,Whole Blood 196 mg/dL (75-99)
[2018-08-17 06:30] LABS: ALT 63 U/L (21-72); AST 51 U/L (17-59); Albumin 3.6 g/dL (3.5-5.0); Alkaline Phosphatase 110 U/L (38-126); Anion Gap 5 mmol/L; Bilirubin, Delta 0.2 mg/dL (0.0-0.2); Bilirubin,Unconjugated 0.4 mg/dL (0.0-1.1); Blood Urea Nitrogen 15 mg/dL (9-20); Carbon Dioxide 27 mmol/L (22-30); Chloride 104 mmol/L (98-107); Glucose 199 mg/dL (74-99); Potassium 4.4 mmol/L (3.5-5.1); Sodium 136 mmol/L (137-145); Total Bilirubin 0.6 mg/dL (0.2-1.3); Total Protein 6.3 g/dL (6.3-8.2)
[2018-08-17 07:30] VITALS: RESP 16; TEMP 97.8
[2018-08-17] MEDS: Vilazodone Hcl [Viibryd] 10 MG PO SCH (08:41)
[2018-08-17] MEDS ORDERED: CLOPIDOGREL 75 MG TAB PO SCH (09:00)
[2018-08-17] MEDS ORDERED: ASPIRIN 81 MG PO SCH (09:00)
[2018-08-17] MEDS ORDERED: ISOSORBIDE MONONITRATE ER 30 MG TAB.ER.24H PO SCH (09:00)
[2018-08-17] MEDS: LISINOPRIL 5 MG TAB PO SCH (09:22)
[2018-08-17] MEDS: ATORVASTATIN 80 MG TAB PO SCH (09:22)
[2018-08-17] MEDS: HEPARIN SODIUM,PORCINE 5,000 UNIT/ML 1 ML VIAL SQ SCH (09:22)
[2018-08-17] MEDS: CYCLOBENZAPRINE 10 MG TAB PO SCH (09:22)
[2018-08-17] MEDS: ATENOLOL 25 MG TAB PO SCH (09:22)
--- NOTE | 2018-08-17 11:04 | P.PN ---
Subjective Progress Note Date: 08/17/18 This is a pleasant 57-year-old gentleman with known history of coronary artery disease who presented to the hospital with symptoms of chest discomfort. Patient does have history of hyperlipidemia, and nicotine dependence. He was taken to the cardiac catheterization lab, where he underwent successful stenting of the distal right coronary artery and successful stenting of the mid RCA. EKG was reviewed this morning, shows a normal sinus rhythm with no changes from post-PCI. Patient feels well this morning, denies any chest pain or difficulty in breathing, he just complains of feeling achy in his legs. Right groin site is soft, no hematoma. Blood pressure 133/60, heart rate in the 60s to 70s, 96% on room air. Sodium 136, potassium 4.4, BUN 15 and creatinine 0.9. Patient is currently on aspirin 81 mg daily, atenolol 12.5 mg daily, Lipitor 80 mg daily, Plavix 75 mg daily, Imdur 30 mg daily, lisinopril 5 mg daily and sublingual nitroglycerin as needed for chest pain. Objective - Vital Signs Vital signs: Vital Signs Temp 97.8 F 08/17/18 07:25 Pulse 70 08/17/18 07:25 Resp 16 08/17/18 07:25 BP 179/92 08/17/18 07:25 Pulse Ox 96 08/17/18 07:25 Intake & Output 08/16/18 08/17/18 08/17/18 18:59 06:59 18:59 Intake Total 1330 600 240 Balance 1330 600 240 Weight 130.7 kg 130.9 kg Intake: IV 50 Intake, IV Titration 800 Amount Sodium Chloride 0.9% 1, 800 000 ml @ 100 mls/hr IV . Q10H [facility] Rx#:[id number] Oral 480 600 240 Other: Voiding Method Toilet # Voids 3 2 # Bowel Movements 0 - Exam PHYSICAL EXAMINATION: GENERAL: 57-year-old gentleman in no acute distress at the time of my examination HEENT: Head is atraumatic, normocephalic. Pupils equal, round. Sclera anicteric. Conjunctiva are clear. Mucous membranes of the mouth are moist. Neck is supple. There is no elevated jugular venous pressure. No carotid bruit is heard. HEART EXAMINATION: Heart S1, S2 normal. No murmur or gallop heard. CHEST EXAMINATION: Lungs are clear to auscultation and precussion. No chest wall tenderness is noted on palpation or with deep breathing. ABDOMEN: Soft, nontender. Bowel sounds are heard. No organomegaly noted. EXTREMITIES: 2+ peripheral pulses with no evidence of peripheral edema and no calf tenderness noted. Right groin is soft, no evidence of any hematoma. NEUROLOGIC patient is awake, alert and oriented X3. . - Labs CBC & Chem 7: 08/15/18 23:31 08/17/18 05:54 Labs: Abnormal Lab Results - Last 24 Hours (Table) 08/15/18 08/16/18 08/16/18 Range/Units 01:08 05:29 11:39 Sodium (137-145) mmol/L Glucose (74-99) mg/dL POC Glucose (mg/dL) 153 H (75-99) mg/dL Hemoglobin A1c 8.8 H (4.0-6.0) % AST 65 H (17-59) U/L ALT 85 H (21-72) U/L Total Protein 6.1 L (6.3-8.2) g/dL Albumin 3.4 L (3.5-5.0) g/dL 08/16/18 08/16/18 08/17/18 Range/Units 16:37 20:39 05:54 Sodium 136 L (137-145) mmol/L Glucose 199 H (74-99) mg/dL POC Glucose (mg/dL) 208 H 201 H (75-99) mg/dL Hemoglobin A1c (4.0-6.0) % AST (17-59) U/L ALT (21-72) U/L Total Protein (6.3-8.2) g/dL Albumin (3.5-5.0) g/dL 08/17/18 Range/Units 06:07 Sodium (137-145) mmol/L Glucose (74-99) mg/dL POC Glucose (mg/dL) 196 H (75-99) mg/dL Hemoglobin A1c (4.0-6.0) % AST (17-59) U/L ALT (21-72) U/L Total Protein (6.3-8.2) g/dL Albumin (3.5-5.0) g/dL Assessment and Plan Plan: Assessment and plan #1 status post successful stenting of the distal and mid right coronary artery #2 known history of coronary artery disease #3 hyperlipidemia #4 nicotine dependence Plan Patient may be discharged home today from cardiology's perspective, we'll make a follow-up appointment in the office with Dr. Villalobos in one week. Patient will be discharged home on aspirin 81 mg daily, atenolol 12.5 mg daily, Lipitor 80 mg daily, Plavix 75 mg daily, Imdur 30 mg daily, lisinopril 5 mg daily, and sublingual nitroglycerin as needed for chest pain. DNP note has been reviewed, I agree with a documented findings and plan of care. Patient was seen and examined.
[2018-08-17 11:39] LABS: Glucose,Whole Blood 204 mg/dL (75-99)
[2018-08-17 12:34] VITALS: BP 101/65; PULSE 58
--- NOTE | 2018-08-17 13:27 | P.CONS ---
History of Present Illness - Reason for Consult Consult date: 08/17/18 epigastric discomfort GERD Requesting physician: Van Campbell - Chief Complaint chest pain and epigastric discomfort - History of Present Illness 57-year-old gentleman with a history of cholecystectomy, GERD maintained on PPI therapy, nicotine cigarette dependency, hyperlipidemia, CAD admitted with chest discomfort. Patient underwent heart catheterization yesterday with stenting of the distal and mid right coronary artery. He's been eexperiencingng increased indigestion over the last few weeks despite taking Protonix 40 mg daily. denies hematemesis hematochezia or melena. No weight loss. No history of peptic ulcer disease or GI bleeds. He drinks pot of coffee daily occasional alcohol nothing heavy. No NSAIDs. No history of EGD. CBC/CMP within normal limits. Ultrasound abdomen enlarged liver 24.7 cm. Fatty infiltration. CBD D0.5 centimeters. Past Medical History Past Medical History: CVA/TIA, GERD/Reflux, Hyperlipidemia, Memory Impairment, Myocardial Infarction ([place]), Osteoarthritis (OA) Additional Past Medical History / Comment(s): HX OF TIA -SHORT TERM MEMORY PROBLEMS ,HX OF GOUT, RECTAL FISTULA WITH OCCASIONAL BLEEDING. Last Myocardial Infarction Date:: 2010 History of Any Multi-Drug Resistant Organisms: MRSA Year Discovered:: 2010 MDRO Source:: chest incision Past Surgical History: Cholecystectomy, Coronary Bypass/CABG, Heart Catheterization Additional Past Surgical History / Comment(s): triple bypass 2011, RECTAL FISTULA SURGERY X6. Past Anesthesia/Blood Transfusion Reactions: No Reported Reaction Past Psychological History: Depression Smoking Status: Current every day smoker Past Alcohol Use History: Occasional Additional Past Alcohol Use History / Comment(s): 1ppd for 40 yrs. Past Drug Use History: None Reported - Past Family History Brother(s) Family Medical History: Diabetes Mellitus, Deep Vein Thrombosis (DVT) Additional Family Medical History / Comment(s): epilepsy, Mother Family Medical History: Cancer Additional Family Medical History / Comment(s): COLON CANCER Medications and Allergies Home Medications Medication Instructions Recorded Confirmed Type Atenolol 12.5 mg PO DAILY 09/04/15 08/14/18 History Atorvastatin Calcium [Lipitor] 80 mg PO DAILY #1 tab 09/07/15 08/14/18 Rx Cyclobenzaprine [Flexeril] 10 mg PO DAILY 08/14/18 08/14/18 History Vilazodone HCl [Viibryd] 10 mg PO DAILY 08/14/18 08/14/18 History Aspirin 81 mg PO DAILY #30 chew 08/17/18 Rx Clopidogrel [Plavix] 75 mg PO DAILY #30 tab 08/17/18 Rx Isosorbide Mononitrate ER [Imdur] 30 mg PO DAILY #30 tab.er.24h 08/17/18 Rx Lisinopril [Zestril] 5 mg PO DAILY #30 tab 08/17/18 Rx Nitroglycerin Sl Tabs [Nitrostat] 0.4 mg SUBLINGUAL Q5M PRN #25 tab 08/17/18 Rx Omeprazole 20 mg PO BID #60 tablet. 08/17/18 Rx glipiZIDE [Glucotrol] 10 mg PO AC-BRKFST #30 tablet 08/17/18 Rx Allergies Allergy/AdvReac Type Severity Reaction Status Date / Time No Known Allergies Allergy Verified 08/14/18 20:10 Physical Exam Vitals: Vital Signs Temp Pulse Resp BP Pulse Ox 08/17/18 12:00 58 L 16 101/65 97 08/17/18 07:25 97.8 F 70 16 179/92 96 08/17/18 04:00 98 F 64 17 133/60 96 08/17/18 00:00 63 18 119/57 98 08/16/18 20:00 98.3 F 68 20 110/60 95 08/16/18 16:30 64 16 116/72 95 08/16/18 15:30 64 16 122/69 95 08/16/18 14:30 65 16 115/72 95 08/16/18 14:00 62 16 106/70 95 08/16/18 13:30 61 16 122/71 97 Intake and Output 08/16/18 08/17/18 08/17/18 22:59 06:59 14:59 Intake Total 1040 600 480 Balance 1040 600 480 Intake: Intake, IV Titration 800 Amount Sodium Chloride 0.9% 1, 800 000 ml @ 100 mls/hr IV . Q10H [facility] Rx#:[id number] Oral 240 600 480 Other: Voiding Method Toilet # Voids 3 2 Weight 130.9 kg General appearance: The patient is alert, oriented, in no acute distress. HET: Head is normocephalic and atraumatic. Pupils are equal and reactive. Oropharynx is clear without lesions. Neck: Supple without lymphadenopathy. Trachea midline. Heart: S1 S2. Regular rate and rhythm. Lungs: No crackles or wheezes are heard. Abdomen: Soft, nomild midepigastric sorenessder, nondistended with bowel sounds. No peritoneal signs. Palpable hepatomegaly. 2 finger breaths below right subcostal line. Extremities: Normal skin color and turgor. No cyanosis, rash, ulceration, clubbing, or edema. Radial and pedal pulses are 2/4 bilaterally. Neurological: No focal deficits. Strength and sensation are grossly intact. Results CBC & Chem 7: 08/15/18 23:31 08/17/18 05:54 Labs: Abnormal Lab Results - Last 24 Hours (Table) 08/15/18 08/16/18 08/16/18 Range/Units 01:08 05:29 16:37 Sodium (137-145) mmol/L Glucose (74-99) mg/dL POC Glucose (mg/dL) 208 H (75-99) mg/dL Hemoglobin A1c 8.8 H (4.0-6.0) % AST 65 H (17-59) U/L ALT 85 H (21-72) U/L Total Protein 6.1 L (6.3-8.2) g/dL Albumin 3.4 L (3.5-5.0) g/dL 08/16/18 08/17/18 08/17/18 Range/Units 20:39 05:54 06:07 Sodium 136 L (137-145) mmol/L Glucose 199 H (74-99) mg/dL POC Glucose (mg/dL) 201 H 196 H (75-99) mg/dL Hemoglobin A1c (4.0-6.0) % AST (17-59) U/L ALT (21-72) U/L Total Protein (6.3-8.2) g/dL Albumin (3.5-5.0) g/dL 08/17/18 Range/Units 11:27 Sodium (137-145) mmol/L Glucose (74-99) mg/dL POC Glucose (mg/dL) 204 H (75-99) mg/dL Hemoglobin A1c (4.0-6.0) % AST (17-59) U/L ALT (21-72) U/L Total Protein (6.3-8.2) g/dL Albumin (3.5-5.0) g/dL US - abdomen: report reviewed (Dr. Felix) Assessment and Plan (1) GERD (gastroesophageal reflux disease) Narrative/Plan: 57-year-old gentleman admitted with chest discomfort status post heart catheterization with stenting of RCA reports GERD type symptoms with epigastric discomfort exacerbated over last few weeks maintained on PPI daily at home. S uspect his epigastric discomfort related to exacerbation of GERD however underlying peptic ulcer disease not excluded. Considering patient is not exhibiting any signs of GI bleeding such as hematemesis hematochezia melena or fever with recent heart stent placement, advise conservative measures. Ome prazole 20 mg twice daily. Return to office in 10-14 days for reevaluation and discussion of outpatient EGD. Current Visit: Yes Status: Acute Code(s): K21.9 - GASTRO-ESOPHAGEAL REFLUX DISEASE WITHOUT ESOPHAGITIS SNOMED Code(s): 407641078 (2) Hepatomegaly Narrative/Plan: suspect component of fatty liver disease Current Visit: Yes Status: Acute Code(s): R16.0 - HEPATOMEGALY, NOT ELSEWHERE CLASSIFIED SNOMED Code(s): 83261369 (3) Hx of heart artery stent Current Visit: Yes Status: Acute Code(s): Z95.5 - PRESENCE OF CORONARY ANGIOPLASTY IMPLANT AND GRAFT SNOMED Code(s): 804380143 Plan: 1. Prilosec 40 mg BID. RTO 10 7-10 days for reevaluation and discussion of outpatient EGD. 2. Avoid heavy usage of coffee and abstain from ETOH. Thank you for this kind referral and the opportunity to participate in the care of your patient. This consultation was discussed with Isidro. The impression and plan of care have been directed as dictated.
[2018-08-17 14:32] VITALS: BMI 43.9
--- NOTE | 2018-08-18 07:38 | P.DS ---
Providers Date of admission: 08/15/18 12:11 Attending physician: Van Campbell MD Consults: 08/14/18 23:10 Consult Physician Urgent Consulting Provider: Neil Villalobos Consult Reason/Comments: Chest pain Do you want consulting provider notified?: Yes, Notify in am 08/16/18 09:25 Consult Physician Routine Consulting Provider: [facility] Consult Reason/Comments: Post Interventional patient Do you want consulting provider notified?: Already Contacted 08/16/18 14:24 Consult Physician Routine Consulting Provider: Richard Felix Consult Reason/Comments: elevated liver enzymes, RUQ pain Do you want consulting provider notified?: Yes Primary care physician: Juan Rice Hospital Course: Diagnoses - Non-STEMI, status post stenting of the mid and distal RCA - Right upper quadrant/epigastric abdominal pain, with ultrasound showing cholecystectomy and fatty infiltration of the liver. - Elevated liver enzymes - Hypertension - Hyperlipidemia - History of CAD - History of GERD - History of CVA/TIA Hospital course: This is a 57-year-old gentleman with past medical history significant for hypertension, hyperlipidemia, CAD comes with chest pain. Patient found to have non-ST elevation myocardial infarction. Patient has been evaluated by user experience team lead , he had cardiac cath and 2 stents has been placed in his mid and distal right coronary artery. After the procedure patient feels fine with no chest pain or dyspnea and he says his back to his usual state. Patient was complaining of from 5 years history of epigastric/right upper quadrant abdominal pain, he had some elevated liver enzymes which came back down also liver ultrasound showing fatty liver, his symptoms are stable and his been evaluated by GI team who felt that workup can be done as an outpatient since he has recent cardiac cath and he is on dual anti-platelets therapy. Patient also some diarrhea but C. diff was negative and he can be controlled with oral therapy. He has uncontrolled diabetes and glipizide was prescribed for him upon discharge, glucometer provided and asked to follow-up with his PCP and he agrees On the day of discharge patient is a stable, no other new symptoms. Patient has been cleared by GI and cardiology team for discharge Problems and management plan was discussed with the patient and he verbalized understanding and acceptance Patient was found stable and can be discharged home however he needs follow-up as an outpatient. Patient agrees with the appointments made for him and he said he will follow-up Gen: patient is a AAOx3, no distress CVS: S1-S2, RRR, no murmur Lungs: B/L CTA, no wheezing Abdomen: soft, no distention, no tenderness, positive bowel sounds Extremity: no leg edema or induration Time spent more than 35 minutes Patient Condition at Discharge: Fair Plan - Discharge Summary Discharge Rx Participant: No New Discharge Prescriptions: New Aspirin 81 mg PO DAILY #30 chew Isosorbide Mononitrate ER [Imdur] 30 mg PO DAILY #30 tab.er.24h Nitroglycerin Sl Tabs [Nitrostat] 0.4 mg SUBLINGUAL Q5M PRN #25 tab PRN Reason: Chest Pain Clopidogrel [Plavix] 75 mg PO DAILY #30 tab Lisinopril [Zestril] 5 mg PO DAILY #30 tab glipiZIDE [Glucotrol] 10 mg PO AC-BRKFST #30 tablet Omeprazole 20 mg PO BID #60 tablet. Continue Atenolol 12.5 mg PO DAILY Atorvastatin Calcium [Lipitor] 80 mg PO DAILY #1 tab Vilazodone HCl [Viibryd] 10 mg PO DAILY Cyclobenzaprine [Flexeril] 10 mg PO DAILY Discontinued Omeprazole 40 mg PO DAILY Discharge Medication List Atenolol 12.5 mg PO DAILY 09/04/15 [History] Atorvastatin Calcium [Lipitor] 80 mg PO DAILY #1 tab 09/07/15 [Rx] Cyclobenzaprine [Flexeril] 10 mg PO DAILY 08/14/18 [History] Vilazodone HCl [Viibryd] 10 mg PO DAILY 08/14/18 [History] Aspirin 81 mg PO DAILY #30 chew 08/17/18 [Rx] Clopidogrel [Plavix] 75 mg PO DAILY #30 tab 08/17/18 [Rx] Isosorbide Mononitrate ER [Imdur] 30 mg PO DAILY #30 tab.er.24h 08/17/18 [Rx] Lisinopril [Zestril] 5 mg PO DAILY #30 tab 08/17/18 [Rx] Nitroglycerin Sl Tabs [Nitrostat] 0.4 mg SUBLINGUAL Q5M PRN #25 tab 08/17/18 [Rx] Omeprazole 20 mg PO BID #60 tablet. 08/17/18 [Rx] glipiZIDE [Glucotrol] 10 mg PO AC-BRKFST #30 tablet 08/17/18 [Rx] Follow up Appointment(s)/Referral(s): Amelia Avila MD [REFERRING] - 08/26/18 9:10 am Neil Villalobos MD [STAFF PHYSICIAN] - 08/20/18 11:30 am Richard Felix MD [STAFF PHYSICIAN] - 09/14/18 9:15 am Patient Instructions/Handouts: Heart Healthy Diet (DC), Coronary Intravascular Stent Placement (DC) Activity/Diet/Wound Care/Special Instructions: cardiac diet activity is limited till you see your doctor [facility] (glucometer) [phone]. They will mail pt a form to sign for follow up Discharge Disposition: HOME WITH HOME HEALTH SERVICES
== END 2018-08-17 16:37 | disposition home health service (06) | DRG 246 ==
LOC: EC 19:39 → 1SOBS 23:13 → OBSVTOIN 08-15 12:11 → 3SCARD 08-15 18:14
PROVIDERS: ADMIT Internal Medicine; ATTEND Internal Medicine
PROC: B2111ZZ Fluoroscopy of Multiple Coronary Arteries using Low Osmolar Contrast (ICD-10-PCS; 2018-08-16)
PROC: 4A023N7 Measurement of Cardiac Sampling and Pressure, Left Heart, Percutaneous Approach (ICD-10-PCS; principal; 2018-08-16 07:31)
PROC: 027037Z Dilation of Coronary Artery, One Artery with Four or More Drug-eluting Intraluminal Devices, Percutaneous Approach (ICD-10-PCS; 2018-08-16 07:31)
DX: I21.4 Non-ST elevation (NSTEMI) myocardial infarction (principal); F17.210 Nicotine dependence, cigarettes, uncomplicated; F32.9 Major depressive disorder, single episode, unspecified; G89.29 Other chronic pain; M54.2 Cervicalgia; I10 Essential (primary) hypertension; I25.110 Atherosclerotic heart disease of native coronary artery with unstable angina pectoris; I25.2 Old myocardial infarction; E11.65 Type 2 diabetes mellitus with hyperglycemia; E78.5 Hyperlipidemia, unspecified; I25.5 Ischemic cardiomyopathy; K21.9 Gastro-esophageal reflux disease without esophagitis; K76.0 Fatty (change of) liver, not elsewhere classified; Z79.02 Long term (current) use of antithrombotics/antiplatelets; Z79.82 Long term (current) use of aspirin; Z79.84 Long term (current) use of oral hypoglycemic drugs; Z79.899 Other long term (current) drug therapy; Z80.0 Family history of malignant neoplasm of digestive organs; Z82.0 Family history of epilepsy and other diseases of the nervous system; Z83.3 Family history of diabetes mellitus; Z86.73 Personal history of transient ischemic attack (TIA), and cerebral infarction without residual deficits; Z90.49 Acquired absence of other specified parts of digestive tract; Z91.14 Patient's other noncompliance with medication regimen; Z91.19 Patient's noncompliance with other medical treatment and regimen; Z95.1 Presence of aortocoronary bypass graft; R41.3 Other amnesia; M10.9 Gout, unspecified; Z86.14 Personal history of Methicillin resistant Staphylococcus aureus infection; Z83.2 Family history of diseases of the blood and blood-forming organs and certain disorders involving the immune mechanism
CPT/HCPCS: 36415; 71046; 76705; 80048; 80053; 80061; 80076; 82150; 82550; 83036; 83690; 83735; 83880; 84484; 85025; 85049; 85347; 85379; 85610; 85730; 87324; 93005; 93306; 93458; 94760; 96365; 96376; 99291; C1874

== ENCOUNTER 2019-12-15 08:53 | Observation (INO) | payer OTHER ==
[2019-12-15] MEDS ORDERED: NITROGLYCERIN OINT 1 INCH/GM PACKET TOPICAL STA (09:16)
[2019-12-15] MEDS ORDERED: ASPIRIN 81 MG PO STA (09:16)
--- NOTE | 2019-12-15 09:19 | ED ---
General Adult HPI - General Chief complaint: Chest Pain Stated complaint: Chest pain Time Seen by Provider: 12/15/19 08:55 Source: patient, EMS, RN notes reviewed Mode of arrival: EMS Limitations: no limitations - History of Present Illness Initial comments: Patient is a pleasant 59-year-old male presenting to the emergency department chest discomfort. Onset of symptoms was 2 hours ago while at rest. Discomfort was tightness and severe, without radiation. Discomfort is near resolved now following nitroglycerin by EMS. No associated dyspnea. Patient was nauseated and a little bit sweaty. Patient does have history of similar symptoms previously associated with cardiac disease and did have previous CABG. No leg pain or leg swelling. - Related Data Home Medications Medication Instructions Recorded Confirmed atenoloL [Atenolol] 25 mg PO DAILY 09/04/15 12/15/19 Sertraline [Zoloft] 50 - 100 mg PO DAILY 12/15/19 12/15/19 metFORMIN HCL [Glucophage] 500 mg PO BID 12/15/19 12/15/19 Previous Rx's Medication Instructions Recorded Atorvastatin Calcium [Lipitor] 80 mg PO DAILY #1 tab 09/07/15 Clopidogrel [Plavix] 75 mg PO DAILY #30 tab 08/17/18 Allergies Allergy/AdvReac Type Severity Reaction Status Date / Time No Known Allergies Allergy Verified 12/15/19 09:50 Review of Systems ROS Statement: Those systems with pertinent positive or pertinent negative responses have been documented in the HPI. ROS Other: All systems not noted in ROS Statement are negative. Constitutional: Denies: fever Eyes: Denies: eye pain ENT: Denies: ear pain Respiratory: Denies: cough, dyspnea Cardiovascular: Reports: chest pain Endocrine: Denies: fatigue Gastrointestinal: Reports: nausea. Denies: abdominal pain Genitourinary: Denies: dysuria Musculoskeletal: Denies: back pain Skin: Denies: rash Neurological: Denies: headache Past Medical History Past Medical History: CVA/TIA, GERD/Reflux, Hyperlipidemia, Memory Impairment, Myocardial Infarction ([place]), Osteoarthritis (OA) Additional Past Medical History / Comment(s): HX OF TIA -SHORT TERM MEMORY PROBLEMS ,HX OF GOUT, RECTAL FISTULA WITH OCCASIONAL BLEEDING. Last Myocardial Infarction Date:: 2010 History of Any Multi-Drug Resistant Organisms: MRSA Date of last positivie culture/infection: 2010 MDRO Source:: chest incision Past Surgical History: Cholecystectomy, Coronary Bypass/CABG, Heart Catheterization Additional Past Surgical History / Comment(s): triple bypass 2011, RECTAL FISTULA SURGERY X6. Past Anesthesia/Blood Transfusion Reactions: No Reported Reaction Past Psychological History: Anxiety, Depression Smoking Status: Current every day smoker Past Alcohol Use History: Occasional Past Drug Use History: None Reported - Past Family History Brother(s) Family Medical History: Diabetes Mellitus, Deep Vein Thrombosis (DVT) Additional Family Medical History / Comment(s): epilepsy, Mother Family Medical History: Cancer Additional Family Medical History / Comment(s): COLON CANCER General Exam Limitations: no limitations General appearance: alert, in no apparent distress Head exam: Present: normocephalic Eye exam: Present: normal appearance Neck exam: Present: normal inspection Respiratory exam: Present: normal lung sounds bilaterally. Absent: chest wall tenderness Cardiovascular Exam: Present: regular rate, normal rhythm Expanded Peripheral pulses: 2+: Radial (R), Radial (L), Dorsalis Pedis (R), Dorsalis Pedis (L) GI/Abdominal exam: Present: soft. Absent: tenderness Extremities exam: Present: normal inspection. Absent: pedal edema, calf tenderness Neurological exam: Present: alert Psychiatric exam: Present: normal affect, normal mood Skin exam: Present: normal color Course Vital Signs 12/15/19 12/15/19 08:53 09:07 Temperature 98.0 F Pulse Rate 50 L Pulse Rate [ 48 L Right Pulse Oximetery] Respiratory 18 Rate Blood Pressure 108/60 O2 Sat by Pulse 96 Oximetry EKG Findings - EKG Comments: EKG Findings:: Size pericardial 47. CT 180. QRS 98. QT 472. QTC 417. Normal axis. Septal Q waves. No acute ST change. Medical Decision Making - Medical Decision Making Patient sees practitioner [place] who works with Dr. Henriquez. Case was discussed with Dr. Otto, who will admit. Patient reevaluated and updated. Patient resting comfortably in bed - Lab Data Result diagrams: 12/15/19 09:41 12/15/19 09:41 Lab Results 12/15/19 12/15/19 12/15/19 Range/Units 09:41 09:41 09:41 WBC 10.5 (3.8-10.6) k/uL RBC 5.20 (4.30-5.90) m/uL Hgb 16.3 (13.0-17.5) gm/dL Hct 49.5 (39.0-53.0) % MCV 95.2 (80.0-100.0) fL MCH 31.2 (25.0-35.0) pg MCHC 32.8 (31.0-37.0) g/dL RDW 13.9 (11.5-15.5) % Plt Count 247 (150-450) k/uL Neutrophils % 71 % Lymphocytes % 20 % Monocytes % 5 % Eosinophils % 2 % Basophils % 1 % Neutrophils # 7.4 (1.3-7.7) k/uL Lymphocytes # 2.1 (1.0-4.8) k/uL Monocytes # 0.6 (0-1.0) k/uL Eosinophils # 0.2 (0-0.7) k/uL Basophils # 0.1 (0-0.2) k/uL PT 9.9 (9.0-12.0) sec INR 0.9 (<1.2) APTT 23.4 (22.0-30.0) sec Sodium 135 L (137-145) mmol/L Potassium 4.8 (3.5-5.1) mmol/L Chloride 106 (98-107) mmol/L Carbon Dioxide 22 (22-30) mmol/L Anion Gap 7 mmol/L BUN 17 (9-20) mg/dL Creatinine 0.96 (0.66-1.25) mg/dL Est GFR (CKD-EPI)AfAm >90 (>60 ml/min/1.73 sqM) Est GFR (CKD-EPI)NonAf 87 (>60 ml/min/1.73 sqM) Glucose 117 H (74-99) mg/dL Calcium 8.9 (8.4-10.2) mg/dL Magnesium 2.1 (1.6-2.3) mg/dL Total Bilirubin 0.5 (0.2-1.3) mg/dL AST 40 (17-59) U/L ALT 23 (4-49) U/L Alkaline Phosphatase 124 (38-126) U/L Troponin I (0.000-0.034) ng/mL Total Protein 6.8 (6.3-8.2) g/dL Albumin 4.0 (3.5-5.0) g/dL 08/27/20 Range/Units 09:41 WBC (3.8-10.6) k/uL RBC (4.30-5.90) m/uL Hgb (13.0-17.5) gm/dL Hct (39.0-53.0) % MCV (80.0-100.0) fL MCH (25.0-35.0) pg MCHC (31.0-37.0) g/dL RDW (11.5-15.5) % Plt Count (150-450) k/uL Neutrophils % % Lymphocytes % % Monocytes % % Eosinophils % % Basophils % % Neutrophils # (1.3-7.7) k/uL Lymphocytes # (1.0-4.8) k/uL Monocytes # (0-1.0) k/uL Eosinophils # (0-0.7) k/uL Basophils # (0-0.2) k/uL PT (9.0-12.0) sec INR (<1.2) APTT (22.0-30.0) sec Sodium (137-145) mmol/L Potassium (3.5-5.1) mmol/L Chloride (98-107) mmol/L Carbon Dioxide (22-30) mmol/L Anion Gap mmol/L BUN (9-20) mg/dL Creatinine (0.66-1.25) mg/dL Est GFR (CKD-EPI)AfAm (>60 ml/min/1.73 sqM) Est GFR (CKD-EPI)NonAf (>60 ml/min/1.73 sqM) Glucose (74-99) mg/dL Calcium (8.4-10.2) mg/dL Magnesium (1.6-2.3) mg/dL Total Bilirubin (0.2-1.3) mg/dL AST (17-59) U/L ALT (4-49) U/L Alkaline Phosphatase (38-126) U/L Troponin I 0.017 (0.000-0.034) ng/mL Total Protein (6.3-8.2) g/dL Albumin (3.5-5.0) g/dL Disposition Clinical Impression: Chest pain Disposition: ADMITTED IP TO THIS HOSP Is patient prescribed a controlled substance at d/c from ED?: No Referrals: None,Stated [Primary Care Provider] - 1-2 days Decision Time: 10:37
[2019-12-15 09:53] LABS: Basophils # (A) 0.1 k/uL (0-0.2); Basophils % (A) 1 %; Eosinophils # (A) 0.2 k/uL (0-0.7); Eosinophils % (A) 2 %; HCT 49.5 % (39.0-53.0); HGB 16.3 gm/dL (13.0-17.5); Lymphocytes # (A) 2.1 k/uL (1.0-4.8); Lymphocytes % (A) 20 %; MCH 31.2 pg (25.0-35.0); MCHC 32.8 g/dL (31.0-37.0); MCV 95.2 fL (80.0-100.0); Mean Platelet Volume 7.6; Monocytes # (A) 0.6 k/uL (0-1.0); Monocytes % (A) 5 %; Neutrophils # (A) 7.4 k/uL (1.3-7.7); Neutrophils % (A) 71 %; Platelet Count 247 k/uL (150-450); RDW 13.9 % (11.5-15.5); WBC 10.5 k/uL (3.8-10.6)
[2019-12-15 10:07] LABS: INR 0.9 (<1.2); Partial Thromboplastin Time 23.4 sec (22.0-30.0); Prothrombin Time 9.9 sec (9.0-12.0)
[2019-12-15 10:09] LABS: ALT 23 U/L (4-49); AST 40 U/L (17-59); African American GFR (CKD) >90 (>60 ml/min/1.73 sqM); Alkaline Phosphatase 124 U/L (38-126); Anion Gap 7 mmol/L; Blood Urea Nitrogen 17 mg/dL (9-20); Calcium 8.9 mg/dL (8.4-10.2); Carbon Dioxide 22 mmol/L (22-30); Chloride 106 mmol/L (98-107); Glucose 117 mg/dL (74-99); Magnesium 2.1 mg/dL (1.6-2.3); Non-African American GFR(CKD) 87 (>60 ml/min/1.73 sqM); Potassium 4.8 mmol/L (3.5-5.1); Sodium 135 mmol/L (137-145); Total Bilirubin 0.5 mg/dL (0.2-1.3); Total Protein 6.8 g/dL (6.3-8.2)
--- NOTE | 2019-12-15 10:10 | XR ---
EXAMINATION TYPE: XR chest 2V DATE OF EXAM: 12/15/2019 COMPARISON: Chest x-ray August 14, 2018. HISTORY: Chest pain. TECHNIQUE: Frontal and lateral views of the chest are obtained. FINDINGS: Post-CABG changes with mediastinal clips and sternal wires is redemonstrated. Overlying EKG leads are again seen. There is some chronic parenchymal change without suspicious new focal air spac e opacity, pleural effusion, or pneumothorax seen. The cardiac silhouette size remains within normal limits. Underlying scoliotic curvature redemonstrated. Old fracture deformity left clavicle again se en. IMPRESSION: Chronic changes without new acute pulmonary process.
[2019-12-15] MEDS ORDERED: NITROGLYCERIN SL TABS 0.4 MG TAB SUBLINGUAL PRN (10:37)
[2019-12-15] MEDS ORDERED: HEPARIN SOD,PORK IN 0.45% NACL 25,000 UNIT in 0.45% NACL 1 250ML.BAG IV SCH (11:30)
[2019-12-15] MEDS ORDERED: HEPARIN SODIUM,PORCINE 5,000 UNIT/ML 1 ML VIAL IV ONE (11:30)
[2019-12-15] MEDS ORDERED: HEPARIN SODIUM,PORCINE 5,000 UNIT/ML 1 ML VIAL IV PRN (11:30)
[2019-12-15] MEDS ORDERED: PNEUMOCOCCAL VACC-PNEUMOVAX 23 25 MCG/0.5 ML VIAL IM ONE (11:43)
[2019-12-15 12:34] LABS: Prothrombin Time 9.9 sec (9.0-12.0)
[2019-12-15] MEDS ORDERED: ALPRAZolam 0.5 MG TAB PO PRN (13:59)
[2019-12-15] MEDS ORDERED: SODIUM CHLORIDE 0.9% 1,000 ML in EMPTY BAG 1 BAG IV ONE (13:59)
[2019-12-15] MEDS ORDERED: ALPRAZolam 0.25 MG TAB PO PRN (13:59)
--- NOTE | 2019-12-15 13:59 | P.CRDCN ---
History of Present Illness History of present illness: HISTORY OF PRESENTING ILLNESS This is a pleasant 59-year-old male past medical history significant for coronary artery disease status post bypass grafting, myocardial infarction, ischemic cardiomyopathy, chronic systolic heart failure, hypertension, dyslipidemia, diabetes mellitus and chronic nicotine dependence. He has followed in the office in the past with Dr. Villalobos however has not been to the office since 2017. In 2019 he presented to the hospital with a non-ST elevated myocardial infarction underwent cardiac catheterization revealing a chronic total occlusion of the SVG to circumflex, patent NO to LAD and significant stenosis of the mid and distal RCA. At that time he underwent successful PCI of the mid and distal RCA. He states he had no transportation to come to the office for his follow-up appointment and then the pandemic prevented him from coming to the hospital. He was following closely with his PCP up until approximately 5 months ago when he ran out of medications and was unable to get things refills. He just established yesterday with a new PCP and did get his medications refilled. His first time taking all his pills was this morning. This morning he woke up in his usual state of health had a cup coffee and sat down at the table when he had an acute onset of heavy pressure sensation in the midsternal region associated with shortness of breath. He states the discomfort was very intense and worse than he has ever experienced in his life. EMS was notified and he was given sublingual nitroglycerin which did improve his pain however the symptoms did return. Nitropaste was applied in the emergency department however his chest discomfort is continuous and ongoing however less intense. DIAGNOSTICS EKG reveals sinus bradycardia heart rate 47, poor R-wave progression. Chest xray negative for an acute cardiopulmonary process. Laboratory reviewed, CBC unremarkable, sodium 135, potassium 4.8, creatinine 0.96, magnesium 2.1, troponin 0.0 17 and 0.0 13. Current cardiac medications include atorvastatin 80 mg daily, atenolol 25 mg ray ly and Plavix 75 mg daily. REVIEW OF SYSTEMS At the time of my exam: CONSTITUTIONAL: Denies fever or chills. CARDIOVASCULAR: Complains of chest pain. Denies shortness of breath, orthopnea, PND or palpitations. RESPIRATORY: Denies cough. GASTROINTESTINAL: Denies abdominal pain, diarrhea, constipation, nausea or vomiting. MUSCULOSKELETAL: Denies myalgias. NEUROLOGIC: Denies numbness, tingling or weakness. ENDOCRINE: Denies fatigue, weight change, polydipsia or polyurina. GENITOURINARY: Denies burning, hematuria or urgency with micturation. HEMATOLOGIC: Denies history of anemia or bleeding. PHYSICAL EXAMINATION Blood pressure 108/60 heart rate 48 afebrile and maintaining oxygen saturation on room air. CONSTITUTIONAL: No apparent distress. HEENT: Head is normocephalic. Pupils are equal, round. Sclerae anicteric. Mucous membranes of the mouth are moist. No JVD. No carotid bruit. CHEST EXAMINATION: Lungs are clear to auscultation. No chest wall tenderness is noted on palpation or with deep breathing. HEART EXAMINATION: Regular rate and rhythm. S1, S2 heard. No murmurs, gallops or rub. ABDOMEN: Soft, nontender. Positive bowel sounds. EXTREMITIES: 2+ peripheral pulses, no lower extremity edema and no calf tenderness. NEUROLOGIC EXAMINATION: Patient is awake, alert and oriented x3. ASSESSMENT Chest pain Coronary artery disease status post bypass grafting Ischemic cardiomyopathy Chronic systolic heart failure, clinically euvolemic Hypertension Dyslipidemia Diabetes mellitus Chronic nicotine dependence Medication noncompliance PLAN Continue to obtain serial cardiac enzymes to rule out an acute event. Obtain 2D echocardiogram and doppler study to assess cardiac structure and function. Initiate aspirin 81 mg daily and lisinopril 2.5 mg daily. Smoking cessation recommended. Recommend proceeding with cardiac catheterization to assess for progression of underlying coronary artery disease. I have discussed the risks, benefits and alternative therapies for the above-mentioned procedure and for both sedation/analgesia as well as necessary blood product administration, if indicated, as they pertain to this patient. The patient has indicated understanding and acceptance of the risks and procedures discussed. Questions have been answered and he is agreeable to move forward with the above stated procedure. Thank you kindly for this consultation. Nurse Practitioner note has been reviewed, I agree with a documented findings and plan of care. Patient was seen and examined. Past Medical History Past Medical History: Coronary Artery Disease (CAD), CVA/TIA, Diabetes Mellitus, GERD/Reflux, GI Bleed, Hyperlipidemia, Hypertension, Memory Impairment, Myocardial Infarction ([place]), Osteoarthritis (OA) Additional Past Medical History / Comment(s): MIs, NIDDM type II, neuropathy bilateral hands/feet, CVAs-some short term memory issues, chronic pain/arthritis bilaterally in multiple joints, gout bilateral feet, occasional bilateral lower leg muscle spasms, diverticular disease, benign rectal polyp, rectal fissure with occasional bleed (has had multiple surgeries), Last Myocardial Infarction Date:: 2018 History of Any Multi-Drug Resistant Organisms: MRSA Date of last positivie culture/infection: 2010 MDRO Source:: chest incision Past Surgical History: Cholecystectomy, Coronary Bypass/CABG, Heart Catheterization, Heart Catheterization With Stent, Tonsillectomy Additional Past Surgical History / Comment(s): PCI with stents, cardiac caths, 2010 CABG 3 vessel, several rectal fissure surgeries, EGD, colonoscopy/benign rectal polyp Past Anesthesia/Blood Transfusion Reactions: No Reported Reaction Date of Last Stent Placement:: 2018 Smoking Status: Current every day smoker - Past Family History Brother(s) Family Medical History: Diabetes Mellitus, Deep Vein Thrombosis (DVT) Additional Family Medical History / Comment(s): epilepsy, Mother Family Medical History: Cancer Additional Family Medical History / Comment(s): Mother of colon cancer. Father Additional Family Medical History / Comment(s): Pt's father left when pt was 2 yrs old. He does not know any of his medical history other than father is . Medications and Allergies Home Medications Medication Instructions Recorded Confirmed Type atenoloL [Atenolol] 25 mg PO DAILY 09/04/15 12/15/19 History Atorvastatin Calcium [Lipitor] 80 mg PO DAILY #1 tab 09/07/15 12/15/19 Rx Clopidogrel [Plavix] 75 mg PO DAILY #30 tab 08/17/18 12/15/19 Rx Sertraline [Zoloft] 50 - 100 mg PO DAILY 12/15/19 12/15/19 History metFORMIN HCL [Glucophage] 500 mg PO BID 12/15/19 12/15/19 History Allergies Allergy/AdvReac Type Severity Reaction Status Date / Time No Known Allergies Allergy Verified 12/15/19 09:50 Physical Exam Vitals: Vital Signs Temp Pulse Pulse Resp BP Pulse Ox 12/15/19 09:07 48 L 12/15/19 08:53 98.0 F 50 L 18 108/60 96 Intake and Output 12/14/19 12/15/19 12/15/19 22:59 06:59 14:59 Other: Weight 117.027 kg Results 12/15/19 09:41 12/15/19 09:41 Cardiac Enzymes 12/15/19 12/15/19 12/15/19 Range/Units 09:41 09:41 11:49 AST 40 (17-59) U/L Troponin I 0.017 0.013 (0.000-0.034) ng/mL Coagulation 12/15/19 12/15/19 Range/Units 09:41 11:49 PT 9.9 9.9 (9.0-12.0) sec APTT 23.4 (22.0-30.0) sec CBC 12/15/19 Range/Units 09:41 WBC 10.5 (3.8-10.6) k/uL RBC 5.20 (4.30-5.90) m/uL Hgb 16.3 (13.0-17.5) gm/dL Hct 49.5 (39.0-53.0) % Plt Count 247 (150-450) k/uL Comprehensive Metabolic Panel 12/15/19 Range/Units 09:41 Sodium 135 L (137-145) mmol/L Potassium 4.8 (3.5-5.1) mmol/L Chloride 106 (98-107) mmol/L Carbon Dioxide 22 (22-30) mmol/L BUN 17 (9-20) mg/dL Creatinine 0.96 (0.66-1.25) mg/dL Glucose 117 H (74-99) mg/dL Calcium 8.9 (8.4-10.2) mg/dL AST 40 (17-59) U/L ALT 23 (4-49) U/L Alkaline Phosphatase 124 (38-126) U/L Total Protein 6.8 (6.3-8.2) g/dL Albumin 4.0 (3.5-5.0) g/dL Current Medications Generic Name Dose Route Start Last Admin Trade Name Freq PRN Reason Stop Dose Admin Aspirin 81 mg 12/16/19 09:00 Aspirin PO DAILY [facility] Atenolol 25 mg 12/16/19 09:00 Tenormin PO DAILY [facility] Atorvastatin Calcium 80 mg 12/16/19 09:00 Lipitor PO DAILY [facility] Clopidogrel Bisulfate 75 mg 12/16/19 09:00 Plavix PO DAILY [facility] Heparin Sodium (Porcine) 0 unit 12/15/19 11:30 Heparin IV PER PROTOCOL PRN Low PTT Protocol Heparin Sodium/Sodium Chloride 250 mls @ 10.002 mls/hr 12/15/19 11:30 12/15/19 12:10 25,000 unit/ Sodium Chloride IV 8.547 units/kg/hr .Q24H JUSTYN 10.002 mls/hr Administration Protocol 8.547 UNITS/KG/HR Metformin HCl 500 mg 12/15/19 17:30 Glucophage PO AC-BID JUST[facility] Nitroglycerin 0.4 mg 12/15/19 10:37 Nitrostat SUBLINGUAL Q5M PRN Chest Pain Nitroglycerin 1 inch 12/15/19 18:00 Nitro-Bid Oint TOPICAL Q6HR [facility] Intake and Output 12/14/19 12/15/19 12/15/19 22:59 06:59 14:59 Other: Weight 117.027 kg Patient Weight 12/16/19 06:59 Weight 117.027 kg 12/15/19 09:41 12/15/19 09:41
[2019-12-15] MEDS: metFORMIN 500 MG TAB PO SCH (18:08)
[2019-12-15] MEDS: NITROGLYCERIN OINT 1 INCH/GM PACKET TOPICAL SCH ×2 (18:08→22:36)
--- NOTE | 2019-12-15 18:10 | P.HPIM ---
History of Present Illness H&P Date: 12/15/19 Chief Complaint: chest pain History of presenting complaint: This is a pleasant 59-year-old patient who follows a Dr. Henriquez.. Chronic stable medical condition include fatty liver, hypertension, hyperlipidemia, gout. In July of this year patient had a non-ST elevation microinfarction with a stent to the RCA. Patient has continued to smoke a pipe. This morning patient s tarted off with severe pain across the chest. Last for good 20-30 minutes. Did take a nitroglycerin with no help. There was no radiation. Patient did feel dizzy lightheaded and broke ordered a sweat. Admitted with unstable angina. When I saw the patient is still having some chest pressure. Review of systems: GEN.: Tired EYES: None HEENT: None NECK: None RESPIRATORY: None CARDIOVASCULAR: As above GASTROINTESTINAL: None GENITOURINARY: None MUSCULOSKELETAL: None LYMPHATICS: None HEMATOLOGICAL: None PSYCHIATRY: None NEUROLOGICAL: None Past medical history to include: Coronary artery disease with a bypass and stent, diabetes, GERD, hyperlipidemia, hypertension, [place] throat is, peripheral neuropathy, stroke or is some short- term memory issues, gout, lower extremity muscle spasms, diverticulosis, rectal fissure with occasional bleeding anxiety depression. Social history: Lives alone. On disability. 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 Alcohol occasionally. Smokes a pipe-doesn't inhale much Physical examination: VITAL SIGNS: 98, 50, 18, 108/60, 96% room air GENERAL: [BMI 39.2, sitting up, not in distress. EYES: Pupils equal. Conjunctiva normal. HEENT: External appearance of nose and ears normal, oral cavity grossly normal. NECK: JVD not raised; masses not palpable. HEART: First and second heart sounds are normal; no edema. LUNGS: Respiratory rate normal; clear to auscultation. ABDOMEN: Soft, nontender, liver spleen not palpable, no masses palpable. PSYCH: Alert and oriented x3; mood and affect normal. PULSES: Dorsalis pedis feeble if any NEUROLOGICAL: Cranial nerves grossly intact; no facial asymmetry, power and sensation grossly intact. LYMPHATICS: No lymph nodes palpable in the axilla and neck INVESTIGATIONS, reviewed in the clinical context: White count 10.5 hemoglobin 16.3 platelets 247 potassium 4.8 creatinine 0.96 Troponin I 0.017, 0.013, less than 0.012 EKG tracing personally reviewed by me-sinus rhythm Chest x-ray film personally reviewed by me-borderline cardiomegaly with possible chronic interstitial changes Assessment: -Unstable angina in a patient with known coronary artery disease. 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 Nitropaste. Home medications resumed. Cardiology was consulted. Serial troponins in place. Care was discussed with the patient question also. Smoke cessation counseling: This was done with the patient. Nicotine patch is being given. More than 3 minutes was spent for this Past Medical History Past Medical History: Coronary Artery Disease (CAD), CVA/TIA, Diabetes Mellitus, GERD/Reflux, GI Bleed, Hyperlipidemia, Hypertension, Memory Impairment, Myocardial Infarction (OR), Osteoarthritis (OA) Additional Past Medical History / Comment(s): MIs, NIDDM type II, neuropathy bilateral hands/feet, CVAs-some short term memory issues, chronic pain/arthritis bilaterally in multiple joints, gout bilateral feet, occasional bilateral lower leg muscle spasms, diverticular disease, benign rectal polyp, rectal fissure with occasional bleed (has had multiple surgeries), Last Myocardial Infarction Date:: 2018 History of Any Multi-Drug Resistant Organisms: MRSA Date of last positivie culture/infection: 2010 MDRO Source:: chest incision Past Surgical History: Cholecystectomy, Coronary Bypass/CABG, Heart Catheterization, Heart Catheterization With Stent, Tonsillectomy Additional Past Surgical History / Comment(s): PCI with stents, cardiac caths, 2010 CABG 3 vessel, several rectal fissure surgeries, EGD, colonoscopy/benign re ctal polyp Past Anesthesia/Blood Transfusion Reactions: No Reported Reaction Date of Last Stent Placement:: 2018 Smoking Status: Current every day smoker - Past Family History Brother(s) Family Medical History: Diabetes Mellitus, Deep Vein Thrombosis (DVT) Additional Family Medical History / Comment(s): epilepsy, Mother Family Medical History: Cancer Additional Family Medical History / Comment(s): Mother of colon cancer. Father Additional Family Medical History / Comment(s): Pt's father left when pt was 2 yrs old. He does not know any of his medical history other than father is . Medications and Allergies Home Medications Medication Instructions Recorded Confirmed Type atenoloL [Atenolol] 25 mg PO DAILY 09/04/15 12/15/19 History Atorvastatin Calcium [Lipitor] 80 mg PO DAILY #1 tab 09/07/15 12/15/19 Rx Clopidogrel [Plavix] 75 mg PO DAILY #30 tab 08/17/18 12/15/19 Rx Sertraline [Zoloft] 50 - 100 mg PO DAILY 12/15/19 12/15/19 History metFORMIN HCL [Glucophage] 500 mg PO BID 12/15/19 12/15/19 History Allergies Allergy/AdvReac Type Severity Reaction Status Date / Time No Known Allergies Allergy Verified 12/15/19 09:50 Physical Exam Vitals: Vital Signs Temp Pulse Pulse Resp BP BP Pulse Ox 12/15/19 15:00 98.0 F 44 L 18 130/75 98 12/15/19 14:40 48 L 18 12/15/19 09:07 48 L 12/15/19 08:53 98.0 F 50 L 18 108/60 96 Intake and Output 12/15/19 12/15/19 12/15/19 06:59 14:59 22:59 Other: Voiding Method Toilet Weight 117.027 kg Results CBC & Chem 7: 12/15/19 09:41 12/15/19 09:41 Labs: Abnormal Lab Results - Last 24 Hours (Table) 12/15/19 12/15/19 Range/Units 09:41 17:33 APTT 39.7 H (22.0-30.0) sec Sodium 135 L (137-145) mmol/L Glucose 117 H (74-99) mg/dL Thrombosis Risk Factor Assmnt - Choose All That Apply Any of the Below Risk Factors Present?: Yes Each Factor Represents 1 point: Age 41-60 years, Obesity (BMI >25) Other Risk Factors: Yes Each Risk Factor Represents 3 Points: Family history of DVT/PE Other congenital or acquired thrombophilia - If yes, enter type in comment: No Thrombosis Risk Factor Assessment Total Risk Factor Score: 5 Thrombosis Risk Factor Assessment Level: High Risk
--- NOTE | 2019-12-15 18:33 | ECHOF ---
Referral Reason:chest pain MEASUREMENTS -------- HEIGHT: 172.7 cm WEIGHT: 117.0 kg BP: 108/60 RVIDd: 3.7 cm (< 3.3) IVSd: 1.6 cm (0.6 - 1.1) LVIDd: 4.5 cm (3.9 - 5.3) LVPWd: 1.8 cm (0.6 - 1.1) IVSs: 1.9 cm LVIDs: 2.8 cm LVPWs: 1.9 cm LAESV Index (A-L): 31.78 ml/m Ao Diam: 2.9 cm (2.0 - 3.7) AV Cusp: 2.0 cm (1.5 - 2.6) MV EXCURSION: 16.721 mm (> 18.000) MV EF SLOPE: 83 mm/s (70 - 150) EPSS: 0.8 cm MV E Curtis: 0.82 m/s MV DecT: 270 ms MV A Curtis: 0.44 m/s MV E/A Ratio: 1.87 RAP: 5.00 mmHg RVSP: 27.19 mmHg FINDINGS -------- Sinus rhythm. This was a technically difficult study with suboptimal views. The left ventricular size is normal. There is moderate concentric left ventricular hypertrophy. O verall left ventricular systolic function is mildly impaired with, an EF between 45 - 50 %. Basal i nferior LV wall motion is hypokinetic. Basal inferoseptal LV wall motion is hypokinetic. Mid in ferior LV wall motion is hypokinetic. The right ventricle is mildly enlarged. LA is midly dilated 29-33ml/m2. The right atrium was not well visualized. 5.0mg of Lumason was utilized for enhancement of images Interatrial and interventricular septum intact. There is mild aortic valve sclerosis. There is no evidence of aortic regurgitation. There is no e vidence of aortic stenosis. The mitral valve leaflets are mildly thickened. Mild mitral regurgitation is present. Mild tricuspid regurgitation present. Right ventricular systolic pressure is normal at < 35 mmHg. The right ventricular systolic pressure, as measured by Doppler, is 27.19mmHg. The pulmonic valve was not well visualized. Trace/mild (physiologic) pulmonic regurgitation. The aortic root size is normal. IVC Not well visulized. There is no pericardial effusion. CONCLUSIONS -------- 1. There is moderate concentric left ventricular hypertrophy. 2. Overall left ventricular systolic function is mildly impaired with, an EF between 45 - 50 %. 3. Basal inferior LV wall motion is hypokinetic. 4. Basal inferoseptal LV wall motion is hypokinetic. 5. Mid inferior LV wall motion is hypokinetic. 6. The right ventricle is mildly enlarged. 7. LA is midly dilated 29-33ml/m2. 8. There is mild aortic valve sclerosis. 9. Mild mitral regurgitation is present. 10. Mild tricuspid regurgitation present. 11. Trace/mild (physiologic) pulmonic regurgitation. STEPDOWN NURSE: Alice Mars RDCS
[2019-12-16] MEDS ORDERED: ASPIRIN 325 MG TAB PO ONE (06:00)
[2019-12-16 06:18] LABS: Cholesterol 210 mg/dL (<200); HDL Cholesterol 34 mg/dL (40-60); LDL Cholesterol,Calculated 133 mg/dL (0-99); Triglycerides 215 mg/dL (<150)
[2019-12-16 06:25] LABS: Glucose,Whole Blood 119 mg/dL (75-99)
[2019-12-16] MEDS: NITROGLYCERIN OINT 1 INCH/GM PACKET TOPICAL SCH (06:25)
[2019-12-16] MEDS ORDERED: IV FLUID CONTINUATION 950 ML IV ONE (07:40)
[2019-12-16] MEDS ORDERED: fentaNYL (PF) 50 MCG/ML 2 ML AMP IV ONE (07:58)
[2019-12-16] MEDS ORDERED: MIDAZOLAM 2 MG/2 ML VIAL IV ONE (07:58)
[2019-12-16] MEDS ORDERED: LIDOCAINE 1% INJ 10MG/ML (20 ML MDV) SQ ONE (07:58)
[2019-12-16] MEDS ORDERED: IOPAMIDOL-370 125ML BTL INJ ONE (08:22)
[2019-12-16] MEDS ORDERED: RX INFO: IV CONTRAST WAS GIVEN 1 EACH MISC MISCELLANE PRN (08:31)
[2019-12-16] MEDS ORDERED: ASPIRIN 325 MG TAB PO SCH (09:00)
[2019-12-16] MEDS ORDERED: ASPIRIN 81 MG PO SCH (09:00)
[2019-12-16] MEDS ORDERED: atenoloL 25 MG TAB PO SCH (09:00)
[2019-12-16] MEDS: CLOPIDOGREL 75 MG TAB PO SCH (09:52)
[2019-12-16] MEDS: ATORVASTATIN 80 MG TAB PO SCH (09:52)
--- NOTE | 2019-12-16 10:34 | CC ---
CARDIAC CATHETERIZATION REPORT INDICATION: Unstable angina in a patient with known CAD, status post prior bypass. The last catheterization more than a year ago showed patent NO to LAD and venous graft to circumflex and this was occluded. The patient underwent angioplasty of [place] right coronary artery at that time. PROCEDURE NOTE: After obtaining informed consent, left heart catheterization, coronary angiogram are performed and selective injection of the bypass grafts is performed via the right femoral artery using standard Bridget catheters. The patient tolerated the procedure well without any obvious immediate complications. A femoral angiogram was performed and decision was made for manual hemostasis at the has significant atherosclerotic plaque in the common femoral artery. The patient received moderate conscious sedation. Total sedation time was 21 minutes. FINDINGS: HEMODYNAMICS: Left ventricular end-diastolic pressure is 12-14 mm. There is no significant gradient across the aortic valve. LEFT VENTRICULOGRAM: Left ventriculogram is not performed. ANGIOGRAPHIC DATA Left MAIN CORONARY ARTERY: Left main coronary artery is a normal-sized vessel and is free of stenosis. It divides into left anterior descending coronary artery and circumflex coronary artery. LAD is totally occluded in its proximal portion. Circumflex coronary artery gives off fair caliber OM branches. There is competitive flow into one of them. There is a moderate stenosis in the proximal part of the circumflex coronary artery, which remains unchanged from a prior catheterization. Right coronary artery shows patent stents in the proximal and mid right coronary artery without any new significant obstructive lesions. Selective injection of the bypass grafts: 1. NO to LAD appears patent. Proximal and distal anastomotic sites are free of disease. [place] LAD appears free of disease and the body of the graft is free of disease. 2. Venous graft to OM appears completely occluded. CONCLUSION: 1. [place] 3 vessel coronary artery disease with patent NO to LAD, occluded venous grafts. 2. Patent stents within the right coronary artery. PLAN: I reviewed angiographic data with the patient and told him that he needs optimal and aggressive medical therapy. MMODL / IJN: [id number] /
[2019-12-16] MEDS: NICOTINE 14MG/24HR PATCH TRANSDERM SCH ×2 (13:43→15:45)
[2019-12-16] MEDS: ISOSORBIDE MONONITRATE ER 30 MG TAB.ER.24H PO SCH (14:36)
[2019-12-16] MEDS: metFORMIN 500 MG TAB PO SCH (17:33)
--- NOTE | 2019-12-16 20:56 | P.PN ---
Progress Note - Text Progress Note Date: 12/16/19 Chief Complaint: chest pain History of presenting complaint: This is a pleasant 59-year-old patient who follows a Dr. Henriquez.. Chronic stable medical condition include fatty liver, hypertension, hyperlipidemia, gout. In July of this year patient had a non-ST elevation microinfarction with a stent to the RCA. Patient has continued to smoke a pipe. This morning patient started off with severe pain across the chest. Last for good 20-30 minutes. Did take a nitroglycerin with no help. There was no radiation. Patient did feel dizzy lightheaded and broke ordered a sweat. Admitted with unstable angina.-Put on IV heparin. Today-underwent cardiac catheterization. Found a blockage off on of the bypass. Currently no chest pain. Comfortable. Review of systems: Was done for constitutional, cardiovascular, GI, pulmonary. relevant finding as above Active Medications Alprazolam (Xanax) 0.25 mg PO Q6HR PRN PRN Reason: Mild Anxiety Alprazolam (Xanax) 0.5 mg PO Q6HR PRN PRN Reason: Moderate Anxiety Aspirin (Aspirin) 81 mg PO DAILY [facility] Atorvastatin Calcium (Lipitor) 80 mg PO DAILY [facility] Last Admin: 12/16/19 09:52 Dose: 80 mg Documented by: Clopidogrel Bisulfate (Plavix) 75 mg PO DAILY [facility] Last Admin: 12/16/19 09:52 Dose: 75 mg Documented by: Heparin Sodium (Porcine) (Heparin) 0 unit IV PER PROTOCOL PRN; Protocol PRN Reason: Low PTT Last Admin: 12/16/19 00:12 Dose: 2,925 unit Documented by: Isosorbide Mononitrate (Imdur) 30 mg PO DAILY [facility] Last Admin: 12/16/19 14:36 Dose: 30 mg Documented by: Lisinopril (Zestril) 2.5 mg PO DAILY [facility] Last Admin: 12/16/19 09:52 Dose: 2.5 mg Documented by: Metformin HCl (Glucophage) 500 mg PO AC-BID [facility] Metoprolol Tartrate (Lopressor) 25 mg PO BID [facility] Miscellaneous Information (Rx Info: Iv Contrast Was Given) 1 each MISCELLANE DAILY PRN PRN Reason: Per Protocol Stop: 12/18/19 08:31 Nicotine (Habitrol 14mg/24hr Patch) 1 patch TRANSDERM DAILY [facility] Last Admin: 12/16/19 15:45 Dose: Not Given Documented by: Nitroglycerin (Nitrostat) 0.4 mg SUBLINGUAL Q5M PRN PRN Reason: Chest Pain Physical examination: VITAL SIGNS: 97.9, 18, , 131, 79, 98% room air GENERAL: Laying in bed, comfortable. EYES: Pupils equal. Conjunctiva normal. HEENT: External appearance of nose and ears normal, oral cavity grossly normal. NECK: JVD not raised; masses not palpable. HEART: First and second heart sounds are normal; no edema. LUNGS: Respiratory rate normal; clear to auscultation. ABDOMEN: Soft, nontender, liver spleen not palpable, no masses palpable. PSYCH: Alert and oriented x3; mood and affect normal. PULSES: Dorsalis pedis feeble if any INVESTIGATIONS, reviewed in the clinical context: LDL 133 Previous testing White count 10.5 hemoglobin 16.3 platelets 247 potassium 4.8 creatinine 0.96 Troponin I 0.017, 0.013, less than 0.012 EKG tracing personally reviewed by me-sinus rhythm Chest x-ray film personally reviewed by me-borderline cardiomegaly with possible chronic interstitial changes Assessment: -Unstable angina in a patient with known coronary artery disease. Add Imdur and Lopressor. -Cardiac catheterization showing block vessel of the bypass -Diabetes mellitus type 2 -GERD -Hyperlipidemia -Essential hypertension -Peripheral neuropathy secondary to diabetes -Primary osteoarthritis -Gout -Intermittent lower extremity muscle spasms -Chronic diverticulosis -Chronic rectal fissure with history of intermittent bleeding -Anxiety depression otherwise specified -Chronic nicotine dependence patient that smoke a pipe Plan: Discontinue patient Atenol. Add Lopressor 25 mg twice a day starting tomorrow morning. Care was discussed with the patient. Encouraged activity after allowed to be out of bed. Hopefully home in next 24 hours.
[2019-12-17 07:53] LABS: Glucose,Whole Blood 120 mg/dL (75-99)
[2019-12-17 08:24] VITALS: BP 127/71; PULSE 46; RESP 16; TEMP 97.5
[2019-12-17] MEDS: ATORVASTATIN 80 MG TAB PO SCH (08:28)
[2019-12-17] MEDS: CLOPIDOGREL 75 MG TAB PO SCH (08:28)
[2019-12-17] MEDS: ISOSORBIDE MONONITRATE ER 30 MG TAB.ER.24H PO SCH (08:28)
[2019-12-17] MEDS: NICOTINE 14MG/24HR PATCH TRANSDERM SCH (08:29)
[2019-12-17] MEDS ORDERED: ASPIRIN 81 MG PO SCH (09:00)
[2019-12-17] MEDS ORDERED: METOPROLOL TARTRATE 25 MG TAB PO SCH (09:00)
--- NOTE | 2019-12-17 12:02 | P.PN ---
Subjective HISTORY OF PRESENTING ILLNESS This is a pleasant 59-year-old male past medical history significant for coronary artery disease status post bypass grafting, myocardial infarction, ischemic cardiomyopathy, chronic systolic heart failure, hypertension, dyslipidemia, diabetes mellitus and chronic nicotine dependence. He has followed in the office in the past with Dr. Villalobos however has not been to the office since 2017. In 2019 he presented to the hospital with a non-ST elevated myocardial infarction underwent cardiac catheterization revealing a chronic total occlusion of the SVG to circumflex, patent NO to LAD and significant stenosis of the mid and distal RCA. At that time he underwent successful PCI of the mid and distal RCA. He states he had no transportation to come to the office for his follow-up appointment and then the pandemic prevented him from coming to the hospital. He was following closely with his PCP up until approximately 5 months ago when he ran out of medications and was unable to get things refills. He just established yesterday with a new PCP and did get his medications refilled. His first time taking all his pills was this morning. This morning he woke up in his usual state of health had a cup coffee and sat down at the table when he had an acute onset of heavy pressure sensation in the midsternal region associated with shortness of breath. He states the discomfort was very intense and worse than he has ever experienced in his life. EMS was notified and he was given sublingual nitroglycerin which did improve his pain however the symptoms did return. Nitropaste was applied in the emergency department however his chest discomfort is continuous and ongoing however less intense. 12/17/2019 He is seen and examined sitting up in the chair in no acute distress. He underwent cardiac catheterization via the femoral approach with Dr. Villalobos yesterday revealing [place] 3 vessel coronary artery disease with a patent NO to LAD, occluded venous grafts and patent stents within the RCA. he has no symptoms of chest discomfort, shortness of breath, dizziness or palpitations. Blood pressure is 127/71 heart rate is 46 afebrile and maintaining oxygen saturation on room air. laboratory data reviewed, LDL 133 an HDL 34. Currently maintained on aspirin 81 mg daily, Plavix 75 mg daily, atorvastatin 80 mg daily, Imdur 30 mg daily, lisinopril 2.5 mg daily and metoprolol 25 mg twice a day. PHYSICAL EXAMINATION CONSTITUTIONAL: No apparent distress. HEENT: Head is normocephalic. Pupils are equal, round. Sclerae anicteric. Mucous membranes of the mouth are moist. No JVD. No carotid bruit. CHEST EXAMINATION: Lungs are clear to auscultation. No chest wall tenderness is noted on palpation or with deep breathing. HEART EXAMINATION: Regular rate and rhythm. S1, S2 heard. No murmurs, gallops or rub. EXTREMITIES: 2+ peripheral pulses, no lower extremity edema and no calf tenderness. Right femoral access site is clean, dry and intact with no evidence of ecchymosis, tenderness or bleeding. ASSESSMENT Chest pain Coronary artery disease status post bypass grafting Ischemic cardiomyopathy Chronic systolic heart failure, clinically euvolemic Hypertension Dyslipidemia Diabetes mellitus Chronic nicotine dependence Medication noncompliance PLAN Plavix can be discontinued as his recent PCI was over one year ago and history of circumflex patent RCA. Stable for discharge from a cardiac perspective. Lengthy discussion had with the patient regarding smoking cessation, medication compliance and regular follow-up with Dr. Villalobos. Nurse Practitioner note has been reviewed, I agree with a documented findings and plan of care. Patient was seen and examined. Objective - Vital Signs Vital signs: Vital Signs Temp 97.5 F L 12/17/19 08:23 Pulse 46 L 12/17/19 08:23 Resp 16 12/17/19 08:23 BP 127/71 12/17/19 08:23 Pulse Ox 98 12/17/19 08:23 Intake & Output 12/16/19 12/17/19 12/17/19 18:59 06:59 18:59 Intake Total 1412.186 Output Total 0 Balance 1412.186 Intake: IV 225 Intake, IV Titration 107.186 Amount Heparin Sod,Pork in 0.45% 107.186 NaCl 25,000 unit In 0.45 % NaCl 1 250ml.bag @ 8. 547 UNITS/KG/HR 10.002 mls/hr IV .Q24H JUSTYN Rx#: [id number] Oral 1080 Output: Urine 0 Other: Voiding Method Toilet Toilet Toilet # Voids 2 1 1 - Labs CBC & Chem 7: 12/15/19 09:41 12/15/19 09:41 Labs: Abnormal Lab Results - Last 24 Hours (Table) 12/17/19 Range/Units 07:52 POC Glucose (mg/dL) 120 H (75-99) mg/dL
--- NOTE | 2019-12-17 19:24 | P.DS ---
Providers Date of admission: 12/15/19 10:37 Expected date of discharge: 12/17/19 Attending physician: Darnell Otto Consults: 12/15/19 10:37 Consult Physician Urgent Consulting Provider: Yaakov Milian Consult Reason/Comments: cp Do you want consulting provider notified?: Yes Primary care physician: Stated None Hospital Course: Chief Complaint: chest pain History of presenting complaint: This is a pleasant 59-year-old patient who follows a Dr. Henriquez.. Chronic stable medical condition include fatty liver, hypertension, hyperlipidemia, gout. In A pril of this year patient had a non-ST elevation microinfarction with a stent to the RCA. Patient has continued to smoke a pipe. This morning patient started off with severe pain across the chest. Last for good 20-30 minutes. Did take a nitroglycerin with no help. There was no radiation. Patient did feel dizzy lightheaded and broke ordered a sweat. Admitted with unstable angina.-Put on IV heparin. underwent cardiac catheterization. Found a blockage off one of the bypass vessels. Dose of beta yamilex adjusted. Imdur was added.. Today-up and about. No guarding symptoms. Care was discussed with the patient. Questions answered. Cleared by cardiology Consultation: Cardiology associates Physical examination: VITAL SIGNS: 97.5, 51, 16, 127/71, 98% room air GENERAL: Laying in bed, comfortable. EYES: Pupils equal. Conjunctiva normal. HEENT: External appearance of nose and ears normal, oral cavity grossly normal. NECK: JVD not raised; masses not palpable. HEART: First and second heart sounds are normal; no edema. LUNGS: Respiratory rate normal; clear to auscultation. ABDOMEN: Soft, nontender, liver spleen not palpable, no masses palpable. PSYCH: Alert and oriented x3; mood and affect normal. PULSES: Dorsalis pedis feeble if any INVESTIGATIONS, reviewed in the clinical context: LDL 133 Previous testing White count 10.5 hemoglobin 16.3 platelets 247 potassium 4.8 creatinine 0.96 Troponin I 0.017, 0.013, less than 0.012 EKG tracing personally reviewed by me-sinus rhythm Chest x-ray film personally reviewed by me-borderline cardiomegaly with possible chronic interstitial changes Assessment: -Unstable angina in a patient with known coronary artery disease. Add Imdur and Lopressor. -Cardiac catheterization showing block vessel of the bypass vessels. -Coronary artery disease prior history of coronary bypass -Diabetes mellitus type 2 on oral hypoglycemic -GERD -Hyperlipidemia -Essential hypertension -Peripheral neuropathy secondary to diabetes -Primary osteoarthritis -Gout -Intermittent lower extremity muscle spasms -Chronic diverticulosis -Chronic rectal fissure with history of intermittent bleeding -Anxiety depression otherwise specified -Chronic nicotine dependence patient that smoke a pipe Disposition: Home Patient Condition at Discharge: Stable Plan - Discharge Summary Discharge Rx Participant: No New Discharge Prescriptions: New Aspirin 81 mg PO DAILY chew Nicotine 14Mg/24Hr Patch [Habitrol] 1 patch TRANSDERM DAILY #14 patch Isosorbide Mononitrate ER [Imdur] 30 mg PO DAILY #30 tab.er.24h Metoprolol Tartrate [Lopressor] 25 mg PO BID #60 tab Nitroglycerin Sl Tabs [Nitrostat] 0.4 mg SUBLINGUAL Q5M PRN #25 tab PRN Reason: Chest Pain lisinopriL [Zestril] 2.5 mg PO DAILY #30 tab Continue Atorvastatin Calcium [Lipitor] 80 mg PO DAILY #1 tab metFORMIN HCL [Glucophage] 500 mg PO BID Sertraline [Zoloft] 50 - 100 mg PO DAILY Discontinued atenoloL [Atenolol] 25 mg PO DAILY Clopidogrel [Plavix] 75 mg PO DAILY #30 tab Discharge Medication List Atorvastatin Calcium [Lipitor] 80 mg PO DAILY #1 tab 09/07/15 [Rx] Sertraline [Zoloft] 50 - 100 mg PO DAILY 12/15/19 [History] metFORMIN HCL [Glucophage] 500 mg PO BID 12/15/19 [History] Aspirin 81 mg PO DAILY chew 12/17/19 [Rx] Isosorbide Mononitrate ER [Imdur] 30 mg PO DAILY #30 tab.er.24h 12/17/19 [Rx] Metoprolol Tartrate [Lopressor] 25 mg PO BID #60 tab 12/17/19 [Rx] Nicotine 14Mg/24Hr Patch [Habitrol] 1 patch TRANSDERM DAILY #14 patch 12/17/19 [Rx] Nitroglycerin Sl Tabs [Nitrostat] 0.4 mg SUBLINGUAL Q5M PRN #25 tab 12/17/19 [Rx] lisinopriL [Zestril] 2.5 mg PO DAILY #30 tab 12/17/19 [Rx] Follow up Appointment(s)/Referral(s): Armando Henriquez MD [REFERRING] - 1 Week Neil Villalobos MD [STAFF PHYSICIAN] - 12/23/19 2:30 pm Patient Instructions/Handouts: *Surgery [facility] - After Heart Catheterization - Vacuum Drier Operator Instructions Discharge Disposition: HOME SELF-CARE
[2019-12-18] MEDS ORDERED: metFORMIN 500 MG TAB PO SCH (17:30)
== END 2019-12-17 12:40 | disposition home or self-care (01) ==
LOC: EC 08:53 → 3NCARDOBS 10:37
PROVIDERS: ADMIT Hospitalist; ATTEND Hospitalist
DX: I25.110 Atherosclerotic heart disease of native coronary artery with unstable angina pectoris (principal); I25.710 Atherosclerosis of autologous vein coronary artery bypass graft(s) with unstable angina pectoris; E11.42 Type 2 diabetes mellitus with diabetic polyneuropathy; I25.2 Old myocardial infarction; K21.9 Gastro-esophageal reflux disease without esophagitis; M19.91 Primary osteoarthritis, unspecified site; M62.838 Other muscle spasm; K57.90 Diverticulosis of intestine, part unspecified, without perforation or abscess without bleeding; K60.1 Chronic anal fissure; F41.9 Anxiety disorder, unspecified; F32.9 Major depressive disorder, single episode, unspecified; I11.0 Hypertensive heart disease with heart failure; I50.22 Chronic systolic (congestive) heart failure; I25.5 Ischemic cardiomyopathy; T50.996A Underdosing of other drugs, medicaments and biological substances, initial encounter; Z91.128 Patient's intentional underdosing of medication regimen for other reason; K76.0 Fatty (change of) liver, not elsewhere classified; E78.5 Hyperlipidemia, unspecified; M10.9 Gout, unspecified; Z95.5 Presence of coronary angioplasty implant and graft; F17.290 Nicotine dependence, other tobacco product, uncomplicated; R41.3 Other amnesia; Z86.73 Personal history of transient ischemic attack (TIA), and cerebral infarction without residual deficits; Z87.19 Personal history of other diseases of the digestive system; E66.9 Obesity, unspecified; Z68.39 Body mass index [BMI] 39.0-39.9, adult; G89.29 Other chronic pain; Z86.14 Personal history of Methicillin resistant Staphylococcus aureus infection; Z90.49 Acquired absence of other specified parts of digestive tract; Z79.84 Long term (current) use of oral hypoglycemic drugs; Z79.899 Other long term (current) drug therapy; Z79.82 Long term (current) use of aspirin; Z79.02 Long term (current) use of antithrombotics/antiplatelets; Z83.3 Family history of diabetes mellitus; Z82.0 Family history of epilepsy and other diseases of the nervous system; Z80.0 Family history of malignant neoplasm of digestive organs; Z82.49 Family history of ischemic heart disease and other diseases of the circulatory system
CPT/HCPCS: 93005 ×2; 99285; 36415; 93459; 80061; 80053; 83735; 84484; 85025; 85610; 85730 ×2; 71046; G0378 ×3; C8929; C1769 ×3; C1894; J2250; J1644 ×3; J2001; J3010; Q9950; Q9967; 93306